=== PATIENT | female | born 1940 | race Caucasian/White ===

== ENCOUNTER → 2018-01-17 | Outpatient (CLI) | payer MEDICARE ==
[~2018-01-17] MED LIST: ASPI81EC PO; AZIT500 PO; Acidophilus La100 GM; CALCIT950; FISH1000; FLUSAL2505 IH; GUAI600T33 PO; Hair, Skin & N1 EACH PO; LEVSOD50 PO; LEVSOD75 PO; LORA1 PO; METPRE4DP PO; MOVE FREE JOIN1 EACH PO; OMEP40CA12 PO; OXYGEN; Omeprazole20 M1; PRED10 PO; SPIRIVA INHALER; TIOT18 IH; VITAMINS; Vitamin C100 MG; Zithromax250 MG PO
== END | disposition home or self-care (01) ==
LOC: LAB SHORT 07:53 → LAB EV 07:53
DX: R60.9 Edema, unspecified (principal)
CPT/HCPCS: 85379

== ENCOUNTER 2019-11-19 11:30 | Inpatient (IN) | payer MEDICARE, OTHER ==
[~2019-11-19] VITALS: Ht 149.9 cm; Wt 52.2 kg
[~2019-11-19 11:30] MED LIST changes: -ASPI81EC PO; +Aspirin EC81 MG PO; -FISH1000; +FLUT1DIS5 INH; +Fish Oil Conc1000 MG PO; -TIOT18 IH; +TIOT18 INH
[2019-11-19 12:20] LABS: BASOPHILS ABSOLUTE AUTO 0.04 K/mm3 (0.00-0.23); BASOPHILS PERCENT AUTO 0 % (0-2); EOSINOPHILS PERCENT AUTO 0 % (0-6); Hematocrit 38.6 % (33.0-51.0); Hemoglobin 12.3 g/dL (11.5-16.0); IMMATURE GRAN ABSOLUTE AUTO 0.04 K/mm3 (0.00-0.10); IMMATURE GRAN PERCENT AUTO 0 % (0-1); LYMPHOCYTES ABSOLUTE AUTO 2.42 K/mm3 (0.84-5.20); LYMPHOCYTES PERCENT AUTO 22 % (21-46); MONOCYTES ABSOLUTE AUTO 0.85 K/mm3 (0.16-1.47); MONOCYTES PERCENT AUTO 8 % (4-13); Mean Corpuscular HGB 28.5 pg (26.0-34.0); Mean Corpuscular HGB Conc 31.9 g/dL (31.5-36.5); Mean Corpuscular Volume 90 fL (80-100); NEUTROPHILS ABSOLUTE AUTO 7.75 K/mm3 (1.96-9.15); NEUTROPHILS PERCENT AUTO 70 % (41-73); RDW Coefficient Variation 14.4 % (11.7-14.2); RDW Standard Deviation 47.8 fL (35.1-46.3); Red Blood Cell Count 4.31 M/mm3 (3.80-5.20)
[2019-11-19 12:46] LABS: Anion Gap 8 mmol/L (6-16); Blood Urea Nitrogen 13 mg/dL (8-24); Bun/Creatinine Ratio 21.9 (12.0-20.0); CO2, Blood 24 mmol/L (21-32); Calcium, Blood 9.9 mg/dL (8.5-10.1); Chloride, Blood 102 mmol/L (98-108); Creatinine, Blood 0.59 mg/dL (0.40-1.00); Glomerular Filtration Rate >60 (60-); Glucose, Blood 119 mg/dL (70-99); Potassium, Blood 4.8 mmol/L (3.5-5.5); Sodium, Blood 134 mmol/L (136-145)
[2019-11-19 12:55] LABS: Mean Platelet Volume 10.7 fL (9.1-12.4); Platelet Count 372 K/mm3 (150-400)
[2019-11-19] MEDS ORDERED: SYNTHROID75 MCG PO (13:30)
[2019-11-19] MEDS ORDERED: VISBIOME 112.51 EACH PO (13:45)
[2019-11-19] MEDS ORDERED: GLUCOSA-CHOND-1 EACH PO (13:46)
[2019-11-19] MEDS ORDERED: CYAN500 PO (13:46)
[2019-11-19] MEDS ORDERED: ASCORBIC ACID500 M1 PO (13:47)
[2019-11-19] MEDS ORDERED: CALCIUM 500 +1 EAC2 PO (13:47)
--- NOTE | 2019-11-19 14:44 | NUR ---
SIEGEL CATHETER INSTERTED, URINE SPECIMIN COLLECTED ON INSERTION PER PROTOCOL.
--- NOTE | 2019-11-19 14:49 | NUR ---
PT ARRIVED TO UNIT AT APROX 1415 FROM ER. L HIP EXTERNALLY ROTATED AND SHORTENED, C/O 8/10 PAIN, MEDICATED FOR PAIN PER EMAR.
[2019-11-19 15:13] LABS: Source, Urine Catheter
[2019-11-19 15:21] LABS: Bilirubin, Urine Neg (Neg); Blood, Urine 1+ (Neg); Glucose Qualitative, Urine Neg (Neg); Ketones, Urine 3+ (Neg); Leukocyte Esterase, Urine Neg (Neg); Nitrite, Urine Neg (Neg); Protein, Urine Neg (Neg); Specific Gravity, Urine 1.015 (1.003-1.022); Urobilinogen, Urine NORM (Normal)
[2019-11-19 15:31] LABS: Appearance, Urine Clear (Clear); Color, Urine Yellow (P-Yellow)
[2019-11-19 15:34] LABS: White Blood Cells, Urine 0-2 /hpf (0-5)
[2019-11-19 15:35] LABS: Amorphous Light (0-Heavy); Bacteria Few /hpf; Squamous Epithelial Cells Rare /hpf (Few)
--- NOTE | 2019-11-19 17:32 | NUR ---
SHIFT SUMMARY L HIP REPAIR PLANNED 11/20/19. NO VISIBLE DEFORMITIES/BRUISING ON L HIP. PT REPORTS PAIN 7/8 ON 1-10 SCALE, MEDICATING PER EMAR. DENIES N/V, TOELRATING ORAL FLUIDS.
--- NOTE | 2019-11-20 04:57 | NUR ---
SHIFT SUMMARY: PT HAS BEEN NPO SINCE MIDNIGHT FOR PLANNED SURGERY WITH DR. REHMAN THIS MORNING. LLE EXTERNALY ROTATED. SIEGEL CATHETER PATENT AND DRAINING WITH TOTAL OF 800CC URINE EMPTIED THIS SHIFT. PAIN BEING MANAGED WITH 0.25MG OF IV DILAUDID PER EMAR.
[2019-11-20 05:03] LABS: BASOPHILS ABSOLUTE AUTO 0.03 K/mm3 (0.00-0.23); BASOPHILS PERCENT AUTO 0 % (0-2); EOSINOPHILS PERCENT AUTO 0 % (0-6); Hematocrit 40.5 % (33.0-51.0); Hemoglobin 12.9 g/dL (11.5-16.0); IMMATURE GRAN ABSOLUTE AUTO 0.04 K/mm3 (0.00-0.10); IMMATURE GRAN PERCENT AUTO 0 % (0-1); LYMPHOCYTES ABSOLUTE AUTO 1.83 K/mm3 (0.84-5.20); LYMPHOCYTES PERCENT AUTO 16 % (21-46); MONOCYTES ABSOLUTE AUTO 1.15 K/mm3 (0.16-1.47); MONOCYTES PERCENT AUTO 10 % (4-13); Mean Corpuscular HGB 28.3 pg (26.0-34.0); Mean Corpuscular HGB Conc 31.9 g/dL (31.5-36.5); Mean Corpuscular Volume 89 fL (80-100); Mean Platelet Volume 9.9 fL (9.1-12.4); NEUTROPHILS ABSOLUTE AUTO 8.37 K/mm3 (1.96-9.15); NEUTROPHILS PERCENT AUTO 73 % (41-73); Platelet Count 426 K/mm3 (150-400); RDW Coefficient Variation 14.3 % (11.7-14.2); RDW Standard Deviation 46.2 fL (35.1-46.3); Red Blood Cell Count 4.56 M/mm3 (3.80-5.20); White Blood Cell Count 11.42 K/mm3 (4.00-11.30)
[2019-11-20 05:34] LABS: Anion Gap 11 mmol/L (6-16); Blood Urea Nitrogen 11 mg/dL (8-24); Bun/Creatinine Ratio 17.4 (12.0-20.0); CO2, Blood 22 mmol/L (21-32); Calcium, Blood 9.9 mg/dL (8.5-10.1); Chloride, Blood 101 mmol/L (98-108); Creatinine, Blood 0.63 mg/dL (0.40-1.00); Glomerular Filtration Rate >60 (60-); Glucose, Blood 97 mg/dL (70-99); Potassium, Blood 3.7 mmol/L (3.5-5.5); Sodium, Blood 134 mmol/L (136-145)
--- NOTE | 2019-11-20 07:45 | NUR ---
pt reports pain 01/09 sched for or today with dr daniel pt is npo stated her mouth is dry chapstick put on and swabs given pt also given iv dilaudid for pain her sister claudio called earlier update given pt did not have her number so called her daughter to call her to give her an update also
--- NOTE | 2019-11-20 10:22 | NUR ---
DR ARENAS BY TO SEE PT
--- NOTE | 2019-11-20 11:15 | NUR ---
Patient is lying in bed and alert. Patient tells me about her daughter visiting on Monday and her fall and hospitalization on Monday. Patient is extremely disappointed by the chain of events yet thankful that her daughter is here to help handle things over the next few days. I listen empathically, normalize patient's experience and provide prayer. Anetatent responds well and shows signs of reduced stress and an elevated mood. I will continue to remain available to patient and family.
--- NOTE | 2019-11-20 12:15 | NUR ---
DR REHMAN BY TO SEE PT
--- NOTE | 2019-11-20 15:19 | NUR ---
Surgical site prepped with 2% Chlorhexidine cloth wipe. History, Chart, Medications and Allergies reviewed before start of procedure. Lungs clear T/O to Auscultation. Pre-Op teaching done. Pt verbalizes understanding.
--- NOTE | 2019-11-20 16:00 | NUR ---
pt transported via bed to or
--- NOTE | 2019-11-20 18:00 | NUR ---
pt arrived back to room 208 from pacu s/p l hip pinning pt has aquacel dressing c/d/i x2 pt asked if she is allowed to move her leg stated she can move put pt hob up and elev legs up pt can wiggle toes ppp offered cl no nausea
--- NOTE | 2019-11-21 02:12 | NUR ---
PT VERB PAIN LEVEL "BEST IT HAS BEEN SINCE ADMIT"SLEEPING OFF AND ON. REPOSITIONED.REFUSES UP TONIGHT.SIEGEL DRAINING CLEAR YELLOW.PT WAS AFTERNOON RETURN POSTOP. PT REVIOUSLY TACHYCARDIC. NOT TONIGHT. AFEBRILE.
[2019-11-21 03:53] LABS: BASOPHILS ABSOLUTE AUTO 0.01 K/mm3 (0.00-0.23); BASOPHILS PERCENT AUTO 0 % (0-2); EOSINOPHILS PERCENT AUTO 0 % (0-6); Hematocrit 34.2 % (33.0-51.0); Hemoglobin 10.9 g/dL (11.5-16.0); IMMATURE GRAN ABSOLUTE AUTO 0.04 K/mm3 (0.00-0.10); IMMATURE GRAN PERCENT AUTO 0 % (0-1); LYMPHOCYTES ABSOLUTE AUTO 0.92 K/mm3 (0.84-5.20); LYMPHOCYTES PERCENT AUTO 9 % (21-46); MONOCYTES ABSOLUTE AUTO 1.63 K/mm3 (0.16-1.47); MONOCYTES PERCENT AUTO 15 % (4-13); Mean Corpuscular HGB 28.8 pg (26.0-34.0); Mean Corpuscular HGB Conc 31.9 g/dL (31.5-36.5); Mean Corpuscular Volume 91 fL (80-100); Mean Platelet Volume 9.2 fL (9.1-12.4); NEUTROPHILS ABSOLUTE AUTO 8.19 K/mm3 (1.96-9.15); NEUTROPHILS PERCENT AUTO 76 % (41-73); Platelet Count 342 K/mm3 (150-400); RDW Coefficient Variation 14.4 % (11.7-14.2); RDW Standard Deviation 47.9 fL (35.1-46.3); Red Blood Cell Count 3.78 M/mm3 (3.80-5.20); White Blood Cell Count 10.79 K/mm3 (4.00-11.30)
--- NOTE | 2019-11-21 17:26 | NUR ---
SUMMARY REPORTS HAVING ADEQUATE PAIN CONTROL W/ PO NORCO, TAKING PO WELL, OOB TO CHAIR W/ PT/OT TODAY, TOLERATED WELL, DSG C/D/I, PLAN FOR SNF DC TOMORROW, NO ACUTE CHANGES THIS SHIFT.
--- NOTE | 2019-11-22 04:38 | NUR ---
SHIFT SUMMARY POD 2 L HIP REPAIR. AA0X4, VSS. PT HAS BEEN MEDICATED FOR PAIN PER EMAR. REPOSITIONS SELF IN BED, AND HAS BEEN CALLING APPROPRIATLY. SIEGEL PATENT AND DRAINING, PLAN TO REMOVE BEFORE END OF SHIFT. WILL MONITOR FOR URGE TO VOID. PLAN IS TO DISCHARGE TO SNF TODAY.
--- NOTE | 2019-11-22 14:26 | NUR ---
PT DC'D TO [facility], REPORT GIVEN TO ISIDRA HOUGH.
== END 2019-11-22 13:16 | DRG 481 ==
LOC: ER 11:30 → SURS 13:07
PROVIDERS: Emergency Medicine; Orthopaedic Surgery; ADMIT Family Medicine
PROC: 0QS734Z Reposition Left Upper Femur with Internal Fixation Device, Percutaneous Approach (ICD-10-PCS; principal; 2019-11-20 15:30)
DX: S72.142A Displaced intertrochanteric fracture of left femur, initial encounter for closed fracture (principal); E87.1 Hypo-osmolality and hyponatremia; Z79.82 Long term (current) use of aspirin; W18.30XA Fall on same level, unspecified, initial encounter; Y93.9 Activity, unspecified; Y92.9 Unspecified place or not applicable; I73.00 Raynaud's syndrome without gangrene; J44.9 Chronic obstructive pulmonary disease, unspecified; M19.90 Unspecified osteoarthritis, unspecified site; E03.9 Hypothyroidism, unspecified; M81.0 Age-related osteoporosis without current pathological fracture; Z87.891 Personal history of nicotine dependence; Z99.81 Dependence on supplemental oxygen; I10 Essential (primary) hypertension; M06.9 Rheumatoid arthritis, unspecified
CPT/HCPCS: 36415; 71045; 73502; 80048; 81001; 85025; 93005; 93010; 94760; 96374; 96376; 97110; 97162; 97166; 97530; 97535; 99285-25; A9270-GY; C1713; C1769; J0690; J1100; J1170; J2250; J2405; J2704; J3010; J7030; J7120

== ENCOUNTER 2020-07-20 08:28 | Emergency (ER) | payer MEDICARE, OTHER ==
[~2020-07-20] VITALS: Ht 149.9 cm; Wt 50.8 kg
[~2020-07-20 08:28] MED LIST changes: +ASCORBIC ACID500 M1 PO; +CALCIUM 500 +1 EAC2 PO; +CYAN500 PO; +GLUCOSA-CHOND-1 EACH PO; +SYNTHROID75 MCG PO; +VISBIOME 112.51 EACH PO
[2020-07-20] MEDS ORDERED: ACET500 PO (09:01)
[2020-07-20] MEDS ORDERED: TURMERIC500 M2 PO (09:02)
[2020-07-20] MEDS ORDERED: ALBU3IS (09:03)
[2020-07-20 09:47] LABS: BASOPHILS ABSOLUTE AUTO 0.02 K/mm3 (0.00-0.23); BASOPHILS PERCENT AUTO 0 % (0-2); EOSINOPHILS PERCENT AUTO 0 % (0-6); Hematocrit 43.4 % (33.0-51.0); Hemoglobin 13.9 g/dL (11.5-16.0); IMMATURE GRAN ABSOLUTE AUTO 0.02 K/mm3 (0.00-0.10); IMMATURE GRAN PERCENT AUTO 0 % (0-1); LYMPHOCYTES ABSOLUTE AUTO 1.47 K/mm3 (0.84-5.20); LYMPHOCYTES PERCENT AUTO 23 % (21-46); MONOCYTES ABSOLUTE AUTO 0.68 K/mm3 (0.16-1.47); MONOCYTES PERCENT AUTO 11 % (4-13); Mean Corpuscular HGB 28.4 pg (26.0-34.0); Mean Corpuscular Volume 89 fL (80-100); Mean Platelet Volume 10.5 fL (9.1-12.4); NEUTROPHILS ABSOLUTE AUTO 4.21 K/mm3 (1.96-9.15); NEUTROPHILS PERCENT AUTO 66 % (41-73); Platelet Count 300 K/mm3 (150-400); RDW Standard Deviation 48.9 fL (35.1-46.3)
[2020-07-20 09:57] LABS: Alanine Aminotransfer (ALT/SGP 23 U/L (12-78); Albumin, Blood 3.2 g/dL (3.4-5.0); Albumin/Globulin Ratio 0.7 (0.8-1.8); Alk Phos 96 U/L (50-136); Anion Gap 8 mmol/L (6-16); Aspartate Aminotrans (AST/SGOT 30 U/L (12-37); Bilirubin, Total 0.2 mg/dL (0.1-1.0); Blood Urea Nitrogen 11 mg/dL (8-24); Bun/Creatinine Ratio 16.7 (12.0-20.0); CO2, Blood 26 mmol/L (21-32); Calcium, Blood 9.6 mg/dL (8.5-10.1); Chloride, Blood 104 mmol/L (98-108); Creatinine, Blood 0.66 mg/dL (0.40-1.00); Globulin, Blood 4.5 g/dL (2.2-4.0); Glomerular Filtration Rate >60 (60-); Glucose, Blood 101 mg/dL (70-99); Potassium, Blood 3.4 mmol/L (3.5-5.5); Sodium, Blood 138 mmol/L (136-145); Total Protein, Blood 7.7 g/dL (6.4-8.2); Troponin I 0.017 ng/mL (0.000-0.040)
[2020-07-20] MEDS ORDERED: PRED20 PO (11:13)
[2020-07-20] MEDS ORDERED: ALBU3IS INH (11:13)
== END 2020-07-20 13:20 | disposition home or self-care (01) ==
LOC: ER 08:28
PROVIDERS: Physician Assistant
DX: U07.1 COVID-19 (principal); R50.9 Fever, unspecified; R09.81 Nasal congestion; J44.9 Chronic obstructive pulmonary disease, unspecified; E03.9 Hypothyroidism, unspecified; K21.9 Gastro-esophageal reflux disease without esophagitis; Z88.6 Allergy status to analgesic agent; Z88.8 Allergy status to other drugs, medicaments and biological substances; Z79.899 Other long term (current) drug therapy; Z87.891 Personal history of nicotine dependence
CPT/HCPCS: 36415; 71045; 80053; 84484; 85025; 93005; 93010; 99284-25

== ENCOUNTER 2020-08-07 12:19 | Emergency (ER) | payer MEDICARE, SELFPAY ==
[~2020-08-07] VITALS: Ht 149.9 cm; Wt 49.0 kg
[~2020-08-07 12:19] MED LIST changes: +ACET500 PO; +ALBU3IS; +ALBU3IS INH; +PRED20 PO; +TURMERIC500 M2 PO
[2020-08-07] MEDS ORDERED: ANORO ELLIPTA1 EAC1 INH (12:39)
[2020-08-07 13:34] LABS: BASOPHILS ABSOLUTE AUTO 0.05 K/mm3 (0.00-0.23); BASOPHILS PERCENT AUTO 0 % (0-2); EOSINOPHILS ABSOLUTE AUTO 0.01 K/mm3 (0.00-0.68); EOSINOPHILS PERCENT AUTO 0 % (0-6); Hematocrit 45.7 % (33.0-51.0); Hemoglobin 14.3 g/dL (11.5-16.0); IMMATURE GRAN ABSOLUTE AUTO 0.03 K/mm3 (0.00-0.10); IMMATURE GRAN PERCENT AUTO 0 % (0-1); LYMPHOCYTES ABSOLUTE AUTO 1.98 K/mm3 (0.84-5.20); LYMPHOCYTES PERCENT AUTO 17 % (21-46); MONOCYTES ABSOLUTE AUTO 0.82 K/mm3 (0.16-1.47); MONOCYTES PERCENT AUTO 7 % (4-13); Mean Corpuscular HGB 28.4 pg (26.0-34.0); Mean Corpuscular HGB Conc 31.3 g/dL (31.5-36.5); Mean Corpuscular Volume 91 fL (80-100); Mean Platelet Volume 11.1 fL (9.1-12.4); NEUTROPHILS ABSOLUTE AUTO 8.49 K/mm3 (1.96-9.15); NEUTROPHILS PERCENT AUTO 75 % (41-73); Platelet Count 323 K/mm3 (150-400); RDW Coefficient Variation 16.1 % (11.7-14.2); RDW Standard Deviation 52.1 fL (35.1-46.3); Red Blood Cell Count 5.03 M/mm3 (3.80-5.20); White Blood Cell Count 11.38 K/mm3 (4.00-11.30)
[2020-08-07 13:49] LABS: Alanine Aminotransfer (ALT/SGP 21 U/L (12-78); Albumin, Blood 3.8 g/dL (3.4-5.0); Alk Phos 88 U/L (50-136); Anion Gap 9 mmol/L (6-16); Aspartate Aminotrans (AST/SGOT 21 U/L (12-37); Bilirubin, Total 0.5 mg/dL (0.1-1.0); Blood Urea Nitrogen 8 mg/dL (8-24); Bun/Creatinine Ratio 13.3 (12.0-20.0); CO2, Blood 25 mmol/L (21-32); Calcium, Blood 10.4 mg/dL (8.5-10.1); Chloride, Blood 107 mmol/L (98-108); Glomerular Filtration Rate >60 (60-); Glucose, Blood 99 mg/dL (70-99); Potassium, Blood 3.6 mmol/L (3.5-5.5); Sodium, Blood 141 mmol/L (136-145); Total Protein, Blood 7.8 g/dL (6.4-8.2)
[2020-08-07] MEDS ORDERED: Zithromax250 MG PO (15:05)
[2020-08-07] MEDS ORDERED: CEFD300 PO (15:05)
== END 2020-08-07 15:48 | disposition home or self-care (01) ==
LOC: ER 12:19
PROVIDERS: Physician Assistant
DX: J44.0 Chronic obstructive pulmonary disease with (acute) lower respiratory infection (principal); J18.9 Pneumonia, unspecified organism; Z88.0 Allergy status to penicillin; Z88.8 Allergy status to other drugs, medicaments and biological substances; Z88.6 Allergy status to analgesic agent; Z79.899 Other long term (current) drug therapy
CPT/HCPCS: 36415; 71045; 80053; 84484; 85025; 93005; 93010; 99285-25

== ENCOUNTER 2020-09-17 21:19 | Emergency (ER) | payer MEDICARE, SELFPAY ==
[~2020-09-17] VITALS: Ht 149.9 cm; Wt 49.9 kg
[~2020-09-17 21:19] MED LIST changes: +ANORO ELLIPTA1 EAC1 INH; +CEFD300 PO
[2020-09-17 22:40] LABS: BASOPHILS ABSOLUTE AUTO 0.05 K/mm3 (0.00-0.23); BASOPHILS PERCENT AUTO 1 % (0-2); EOSINOPHILS PERCENT AUTO 0 % (0-6); Hematocrit 38.1 % (33.0-51.0); Hemoglobin 12.3 g/dL (11.5-16.0); IMMATURE GRAN ABSOLUTE AUTO 0.02 K/mm3 (0.00-0.10); IMMATURE GRAN PERCENT AUTO 0 % (0-1); LYMPHOCYTES PERCENT AUTO 33 % (21-46); MONOCYTES ABSOLUTE AUTO 0.88 K/mm3 (0.16-1.47); MONOCYTES PERCENT AUTO 12 % (4-13); Mean Corpuscular HGB 29.6 pg (26.0-34.0); Mean Corpuscular HGB Conc 32.3 g/dL (31.5-36.5); Mean Corpuscular Volume 92 fL (80-100); Mean Platelet Volume 10.9 fL (9.1-12.4); NEUTROPHILS ABSOLUTE AUTO 3.98 K/mm3 (1.96-9.15); NEUTROPHILS PERCENT AUTO 54 % (41-73); Platelet Count 362 K/mm3 (150-400); RDW Coefficient Variation 16.5 % (11.7-14.2); RDW Standard Deviation 55.6 fL (35.1-46.3); Red Blood Cell Count 4.16 M/mm3 (3.80-5.20); White Blood Cell Count 7.33 K/mm3 (4.00-11.30)
[2020-09-17 23:00] LABS: Alanine Aminotransfer (ALT/SGP 28 U/L (12-78); Albumin, Blood 3.5 g/dL (3.4-5.0); Albumin/Globulin Ratio 0.9 (0.8-1.8); Alk Phos 125 U/L (50-136); Anion Gap 4 mmol/L (6-16); Aspartate Aminotrans (AST/SGOT 26 U/L (12-37); Bilirubin, Total 0.2 mg/dL (0.1-1.0); Blood Urea Nitrogen 14 mg/dL (8-24); Bun/Creatinine Ratio 22.8 (12.0-20.0); CO2, Blood 29 mmol/L (21-32); Calcium, Blood 10.4 mg/dL (8.5-10.1); Chloride, Blood 108 mmol/L (98-108); Creatinine, Blood 0.61 mg/dL (0.40-1.00); Globulin, Blood 3.7 g/dL (2.2-4.0); Glomerular Filtration Rate >60 (60-); Glucose, Blood 91 mg/dL (70-99); Potassium, Blood 3.7 mmol/L (3.5-5.5); Sodium, Blood 141 mmol/L (136-145); Total Protein, Blood 7.2 g/dL (6.4-8.2); Troponin I <0.015 ng/mL (0.000-0.040)
[2020-09-18 00:32] LABS: Source, Urine Clean Catch
[2020-09-18 00:36] LABS: Bilirubin, Urine Neg (Neg); Blood, Urine 1+ (Neg); Glucose Qualitative, Urine Neg (Neg); Ketones, Urine Neg (Neg); Leukocyte Esterase, Urine Neg (Neg); Nitrite, Urine Neg (Neg); Protein, Urine Neg (Neg); Urobilinogen, Urine NORM (Normal)
[2020-09-18 00:37] LABS: Appearance, Urine Clear (Clear); Color, Urine Pale Yellow (P-Yellow)
[2020-09-18 00:56] LABS: Bacteria Not Seen /hpf; Red Blood Cells, Urine 0-2 /hpf (0-2); Squamous Epithelial Cells Not Seen /hpf (Few); White Blood Cells, Urine Not Seen /hpf (0-5)
== END 2020-09-18 02:17 | disposition home or self-care (01) ==
LOC: ER 21:19
PROVIDERS: Emergency Medicine
DX: R00.2 Palpitations (principal); J44.9 Chronic obstructive pulmonary disease, unspecified; Z87.891 Personal history of nicotine dependence; Z88.0 Allergy status to penicillin; Z88.8 Allergy status to other drugs, medicaments and biological substances; Z88.6 Allergy status to analgesic agent; Z79.52 Long term (current) use of systemic steroids
CPT/HCPCS: 80053; 81001; 84484; 85025; 93005; 93010; 99285-25; J7030

== ENCOUNTER → 2021-06-17 | Outpatient (CLI) | payer MEDICARE ==
[2021-06-17 19:28] LABS: BASOPHILS ABSOLUTE AUTO 0.04 K/mm3 (0.00-0.23); BASOPHILS PERCENT AUTO 1 % (0-2); EOSINOPHILS ABSOLUTE AUTO 0.16 K/mm3 (0.00-0.68); EOSINOPHILS PERCENT AUTO 2 % (0-6); Hematocrit 36.9 % (33.0-51.0); Hemoglobin 11.7 g/dL (11.5-16.0); IMMATURE GRAN ABSOLUTE AUTO 0.02 K/mm3 (0.00-0.10); IMMATURE GRAN PERCENT AUTO 0 % (0-1); LYMPHOCYTES PERCENT AUTO 28 % (21-46); MONOCYTES ABSOLUTE AUTO 0.61 K/mm3 (0.16-1.47); MONOCYTES PERCENT AUTO 9 % (4-13); Mean Corpuscular HGB 28.1 pg (26.0-34.0); Mean Corpuscular HGB Conc 31.7 g/dL (31.5-36.5); Mean Corpuscular Volume 89 fL (80-100); Mean Platelet Volume 10.6 fL (9.1-12.4); NEUTROPHILS ABSOLUTE AUTO 3.96 K/mm3 (1.96-9.15); NEUTROPHILS PERCENT AUTO 59 % (41-73); Platelet Count 391 K/mm3 (150-400); RDW Standard Deviation 59.5 fL (35.1-46.3); Red Blood Cell Count 4.17 M/mm3 (3.80-5.20); White Blood Cell Count 6.69 K/mm3 (4.00-11.30)
[2021-06-21 08:10] LABS: QUANTIFERON MITOGEN VALUE >10.00 IU/mL (.); QUANTIFERON NIL VALUE 0.07 IU/mL (.); QUANTIFERON TB1 AG VALUE 0.03 IU/mL (.); QUANTIFERON TB2 AG VALUE 0.03 IU/mL (.); QUANTIFERON-TB GOLD PLUS Negative (Negative)
== END | disposition home or self-care (01) ==
LOC: LAB SHORT 16:35
PROVIDERS: Internal Medicine Rheumatology
DX: M06.9 Rheumatoid arthritis, unspecified (principal)
CPT/HCPCS: 84450; 85025; 85651

== ENCOUNTER → 2021-07-28 | Outpatient (CLI) | payer MEDICARE ==
[2021-07-28 16:48] LABS: BASOPHILS ABSOLUTE AUTO 0.04 K/mm3 (0.00-0.23); BASOPHILS PERCENT AUTO 0 % (0-2); EOSINOPHILS ABSOLUTE AUTO 0.11 K/mm3 (0.00-0.68); EOSINOPHILS PERCENT AUTO 1 % (0-6); Hematocrit 43.2 % (33.0-51.0); Hemoglobin 13.6 g/dL (11.5-16.0); IMMATURE GRAN ABSOLUTE AUTO 0.02 K/mm3 (0.00-0.10); IMMATURE GRAN PERCENT AUTO 0 % (0-1); LYMPHOCYTES ABSOLUTE AUTO 2.28 K/mm3 (0.84-5.20); LYMPHOCYTES PERCENT AUTO 23 % (21-46); MONOCYTES ABSOLUTE AUTO 0.58 K/mm3 (0.16-1.47); MONOCYTES PERCENT AUTO 6 % (4-13); Mean Corpuscular HGB 29.5 pg (26.0-34.0); Mean Corpuscular HGB Conc 31.5 g/dL (31.5-36.5); Mean Corpuscular Volume 94 fL (80-100); Mean Platelet Volume 11.1 fL (9.1-12.4); NEUTROPHILS ABSOLUTE AUTO 6.78 K/mm3 (1.96-9.15); NEUTROPHILS PERCENT AUTO 69 % (41-73); Platelet Count 368 K/mm3 (150-400); RDW Coefficient Variation 20.8 % (11.7-14.2); Red Blood Cell Count 4.61 M/mm3 (3.80-5.20); White Blood Cell Count 9.81 K/mm3 (4.00-11.30)
== END | disposition home or self-care (01) ==
LOC: LAB SHORT 15:54
PROVIDERS: Internal Medicine Rheumatology
DX: M06.9 Rheumatoid arthritis, unspecified (principal)
CPT/HCPCS: 36415; 84450; 85025; 85651

== ENCOUNTER → 2021-10-27 | Outpatient (CLI) | payer OTHER ==
[2021-10-27 13:22] LABS: BASOPHILS ABSOLUTE AUTO 0.05 K/mm3 (0.00-0.23); BASOPHILS PERCENT AUTO 0 % (0-2); EOSINOPHILS ABSOLUTE AUTO 0.09 K/mm3 (0.00-0.68); EOSINOPHILS PERCENT AUTO 1 % (0-6); Hematocrit 39.8 % (33.0-51.0); Hemoglobin 12.8 g/dL (11.5-16.0); IMMATURE GRAN ABSOLUTE AUTO 0.06 K/mm3 (0.00-0.10); IMMATURE GRAN PERCENT AUTO 1 % (0-1); LYMPHOCYTES ABSOLUTE AUTO 1.72 K/mm3 (0.84-5.20); LYMPHOCYTES PERCENT AUTO 15 % (21-46); MONOCYTES ABSOLUTE AUTO 0.78 K/mm3 (0.16-1.47); MONOCYTES PERCENT AUTO 7 % (4-13); Mean Corpuscular HGB 31.1 pg (26.0-34.0); Mean Corpuscular HGB Conc 32.2 g/dL (31.5-36.5); Mean Corpuscular Volume 97 fL (80-100); Mean Platelet Volume 10.9 fL (9.1-12.4); NEUTROPHILS ABSOLUTE AUTO 8.69 K/mm3 (1.96-9.15); NEUTROPHILS PERCENT AUTO 76 % (41-73); Platelet Count 457 K/mm3 (150-400); RDW Coefficient Variation 15.4 % (11.7-14.2); RDW Standard Deviation 53.9 fL (35.1-46.3); Red Blood Cell Count 4.12 M/mm3 (3.80-5.20); White Blood Cell Count 11.39 K/mm3 (4.00-11.30)
== END | disposition home or self-care (01) ==
LOC: LAB SHORT 08:55
PROVIDERS: Internal Medicine Rheumatology
DX: M06.9 Rheumatoid arthritis, unspecified (principal)
CPT/HCPCS: 84450; 85025; 85651

== ENCOUNTER → 2022-01-26 | Outpatient (CLI) | payer OTHER | END | disposition home or self-care (01) | LOC: LAB SHORT 15:11 → PLD 15:11 | DX: L82.1 Other seborrheic keratosis (principal) | CPT/HCPCS: 88305 ==

== ENCOUNTER 2022-05-18 10:18 | Emergency (ER) | payer OTHER ==
[~2022-05-18] VITALS: Ht 147.3 cm; Wt 46.7 kg
[~2022-05-18 10:18] MED LIST changes: +ASPI81CH PO; +LIDO700A20 TOP; +METHOTREXATE2.5 M9 PO; +PRED5 PO; +SPIRIVA RESPIMAT4 G3 INH; +SYNTHROID88 MCG PO
== END 2022-05-18 13:31 | disposition home or self-care (01) ==
LOC: ER 10:18
DX: R07.89 Other chest pain (principal); J44.9 Chronic obstructive pulmonary disease, unspecified; E03.9 Hypothyroidism, unspecified; Z88.0 Allergy status to penicillin; Z88.6 Allergy status to analgesic agent; Z88.8 Allergy status to other drugs, medicaments and biological substances; Z79.899 Other long term (current) drug therapy; Z79.890 Hormone replacement therapy; Z87.891 Personal history of nicotine dependence; Z79.82 Long term (current) use of aspirin
CPT/HCPCS: 71046; 93005; 93010; A9270; J1885

== ENCOUNTER → 2022-06-30 | Outpatient (CLI) | payer OTHER ==
[2022-06-30 19:08] LABS: BASOPHILS ABSOLUTE AUTO 0.05 K/mm3 (0.00-0.23); BASOPHILS PERCENT AUTO 0 % (0-2); EOSINOPHILS ABSOLUTE AUTO 0.12 K/mm3 (0.00-0.68); EOSINOPHILS PERCENT AUTO 1 % (0-6); Hemoglobin 13.7 g/dL (11.5-16.0); IMMATURE GRAN ABSOLUTE AUTO 0.06 K/mm3 (0.00-0.10); IMMATURE GRAN PERCENT AUTO 1 % (0-1); LYMPHOCYTES ABSOLUTE AUTO 1.64 K/mm3 (0.84-5.20); LYMPHOCYTES PERCENT AUTO 14 % (21-46); MONOCYTES ABSOLUTE AUTO 0.77 K/mm3 (0.16-1.47); MONOCYTES PERCENT AUTO 7 % (4-13); Mean Corpuscular HGB 31.5 pg (26.0-34.0); Mean Corpuscular HGB Conc 32.6 g/dL (31.5-36.5); Mean Corpuscular Volume 97 fL (80-100); Mean Platelet Volume 10.6 fL (9.1-12.4); NEUTROPHILS ABSOLUTE AUTO 8.83 K/mm3 (1.96-9.15); NEUTROPHILS PERCENT AUTO 77 % (41-73); Platelet Count 396 K/mm3 (150-400); RDW Coefficient Variation 14.6 % (11.7-14.2); RDW Standard Deviation 51.7 fL (35.1-46.3); Red Blood Cell Count 4.35 M/mm3 (3.80-5.20); White Blood Cell Count 11.47 K/mm3 (4.00-11.30)
== END | disposition home or self-care (01) ==
LOC: LAB 15:51 → LAB SHORT 15:51
PROVIDERS: Internal Medicine Rheumatology
DX: M06.9 Rheumatoid arthritis, unspecified (principal)
CPT/HCPCS: 84450; 85025; 85651

== ENCOUNTER → 2023-03-09 | Outpatient (CLI) | payer OTHER ==
[2023-03-09 16:50] LABS: BASOPHILS ABSOLUTE AUTO 0.06 K/mm3 (0.00-0.23); BASOPHILS PERCENT AUTO 1 % (0-2); EOSINOPHILS ABSOLUTE AUTO 0.25 K/mm3 (0.00-0.68); EOSINOPHILS PERCENT AUTO 3 % (0-6); Hematocrit 35.5 % (33.0-51.0); Hemoglobin 11.6 g/dL (11.5-16.0); IMMATURE GRAN ABSOLUTE AUTO 0.07 K/mm3 (0.00-0.10); IMMATURE GRAN PERCENT AUTO 1 % (0-1); LYMPHOCYTES ABSOLUTE AUTO 1.35 K/mm3 (0.84-5.20); LYMPHOCYTES PERCENT AUTO 16 % (21-46); MONOCYTES ABSOLUTE AUTO 0.21 K/mm3 (0.16-1.47); MONOCYTES PERCENT AUTO 3 % (4-13); Mean Corpuscular HGB 32.9 pg (26.0-34.0); Mean Corpuscular HGB Conc 32.7 g/dL (31.5-36.5); Mean Corpuscular Volume 101 fL (80-100); Mean Platelet Volume 10.9 fL (9.1-12.4); NEUTROPHILS ABSOLUTE AUTO 6.61 K/mm3 (1.96-9.15); NEUTROPHILS PERCENT AUTO 77 % (41-73); Platelet Count 431 K/mm3 (150-400); RDW Coefficient Variation 17.2 % (11.7-14.2); RDW Standard Deviation 60.2 fL (35.1-46.3); Red Blood Cell Count 3.53 M/mm3 (3.80-5.20); White Blood Cell Count 8.55 K/mm3 (4.00-11.30)
[2023-03-09 17:43] LABS: Albumin, Blood 3.8 g/dL (3.4-5.0); Albumin/Globulin Ratio 1.1 (0.8-1.8); Bilirubin, Total 0.4 mg/dL (0.1-1.0); Bun/Creatinine Ratio 29.2 (12.0-20.0); Calcium, Blood 11.3 mg/dL (8.5-10.1); Creatinine, Blood 0.75 mg/dL (0.40-1.00); Globulin, Blood 3.4 g/dL (2.2-4.0); Potassium, Blood 4.6 mmol/L (3.5-5.5); Total Protein, Blood 7.2 g/dL (6.4-8.2)
== END | disposition home or self-care (01) ==
LOC: LAB 08:50 → LAB SHORT 08:50
PROVIDERS: Internal Medicine Rheumatology
DX: M06.9 Rheumatoid arthritis, unspecified (principal)
CPT/HCPCS: 80053; 85025; 85651

== ENCOUNTER 2023-03-19 09:24 | Emergency (ER) | payer OTHER ==
[~2023-03-19] VITALS: Ht 147.3 cm; Wt 54.4 kg
[2023-03-19 10:17] LABS: BASOPHILS ABSOLUTE AUTO 0.05 K/mm3 (0.00-0.23); BASOPHILS PERCENT AUTO 1 % (0-2); EOSINOPHILS ABSOLUTE AUTO 0.17 K/mm3 (0.00-0.68); EOSINOPHILS PERCENT AUTO 2 % (0-6); Hematocrit 34.5 % (33.0-51.0); Hemoglobin 11.1 g/dL (11.5-16.0); IMMATURE GRAN ABSOLUTE AUTO 0.06 K/mm3 (0.00-0.10); IMMATURE GRAN PERCENT AUTO 1 % (0-1); LYMPHOCYTES PERCENT AUTO 17 % (21-46); MONOCYTES ABSOLUTE AUTO 0.82 K/mm3 (0.16-1.47); MONOCYTES PERCENT AUTO 9 % (4-13); Mean Corpuscular HGB 32.2 pg (26.0-34.0); Mean Corpuscular HGB Conc 32.2 g/dL (31.5-36.5); Mean Corpuscular Volume 100 fL (80-100); Mean Platelet Volume 10.2 fL (9.1-12.4); NEUTROPHILS ABSOLUTE AUTO 6.64 K/mm3 (1.96-9.15); NEUTROPHILS PERCENT AUTO 71 % (41-73); Platelet Count 342 K/mm3 (150-400); RDW Coefficient Variation 16.8 % (11.7-14.2); RDW Standard Deviation 58.9 fL (35.1-46.3); Red Blood Cell Count 3.45 M/mm3 (3.80-5.20); White Blood Cell Count 9.34 K/mm3 (4.00-11.30)
[2023-03-19 10:24] LABS: Albumin, Blood 3.5 g/dL (3.4-5.0); Bilirubin, Total 0.3 mg/dL (0.1-1.0); Bun/Creatinine Ratio 22.5 (12.0-20.0); Calcium, Blood 10.7 mg/dL (8.5-10.1); Creatinine, Blood 0.85 mg/dL (0.40-1.00); Globulin, Blood 3.5 g/dL (2.2-4.0); Magnesium, Blood 2.1 mg/dL (1.6-2.4); Phosphorus, Blood 2.3 mg/dL (2.5-4.9); Potassium, Blood 3.8 mmol/L (3.5-5.5)
[2023-03-19 11:02] LABS: D-Dimer, Quantitative 1.46 mg/L FEU (0.00-0.52); International Normalized Ratio 0.96; Prothrombin Time Results 10.1 Sec (9.7-11.5)
[2023-03-19 12:05] LABS: Influenza A, PCR NEGATIVE (NEGATIVE); Influenza B, PCR NEGATIVE (NEGATIVE); Resp Syncytial Virus, PCR NEGATIVE (NEGATIVE); SARS-Cov-2 (COVID-19) PCR, MMC NEGATIVE (NEGATIVE)
[2023-03-19 14:08] LABS: Source, Urine Clean Catch
[2023-03-19 14:16] LABS: Appearance, Urine Clear (Clear); Bilirubin, Urine Neg (Neg); Blood, Urine 2+ (Neg); Color, Urine Yellow (P-Yellow); Glucose Qualitative, Urine Neg (Neg); Ketones, Urine 1+ (Neg); Leukocyte Esterase, Urine Neg (Neg); Nitrite, Urine Neg (Neg); Protein, Urine Neg (Neg); Specific Gravity, Urine 1.015 (1.003-1.022); Urobilinogen, Urine NORM (Normal)
[2023-03-19 14:26] LABS: Bacteria Few /hpf; Hyaline Casts 0-2 /lpf (0-2); Squamous Epithelial Cells Rare /hpf (Few); White Blood Cells, Urine 0-2 /hpf (0-5)
[2023-03-19 16:30] VITALS: BP 135/72
== END 2023-03-19 17:10 | disposition home or self-care (01) ==
LOC: ER 09:24
PROVIDERS: Emergency Medicine
DX: M48.56XA Collapsed vertebra, not elsewhere classified, lumbar region, initial encounter for fracture (principal); Z20.822 Contact with and (suspected) exposure to COVID-19; Z87.891 Personal history of nicotine dependence; J44.9 Chronic obstructive pulmonary disease, unspecified; Z79.82 Long term (current) use of aspirin; Z79.51 Long term (current) use of inhaled steroids; Z79.890 Hormone replacement therapy; Z79.899 Other long term (current) drug therapy; Z88.0 Allergy status to penicillin; Z88.8 Allergy status to other drugs, medicaments and biological substances
CPT/HCPCS: 0241U; 71046; 71260; 74176; 80053; 81001; 83735; 84100; 84145; 84484; 85025; 85379; 85610; 85730; 93005; 93010; 96374-59; 99285-25; J1885; Q9967

== ENCOUNTER → 2023-06-08 | Outpatient (CLI) | payer OTHER ==
[2023-06-08 14:45] LABS: BASOPHILS ABSOLUTE AUTO 0.07 K/mm3 (0.00-0.23); BASOPHILS PERCENT AUTO 1 % (0-2); EOSINOPHILS ABSOLUTE AUTO 0.36 K/mm3 (0.00-0.68); EOSINOPHILS PERCENT AUTO 3 % (0-6); Hematocrit 39.6 % (33.0-51.0); Hemoglobin 12.6 g/dL (11.5-16.0); IMMATURE GRAN ABSOLUTE AUTO 0.04 K/mm3 (0.00-0.10); IMMATURE GRAN PERCENT AUTO 0 % (0-1); LYMPHOCYTES ABSOLUTE AUTO 2.66 K/mm3 (0.84-5.20); LYMPHOCYTES PERCENT AUTO 22 % (21-46); MONOCYTES ABSOLUTE AUTO 0.52 K/mm3 (0.16-1.47); MONOCYTES PERCENT AUTO 4 % (4-13); Mean Corpuscular HGB 33.1 pg (26.0-34.0); Mean Corpuscular HGB Conc 31.8 g/dL (31.5-36.5); Mean Corpuscular Volume 104 fL (80-100); Mean Platelet Volume 10.5 fL (9.1-12.4); NEUTROPHILS ABSOLUTE AUTO 8.43 K/mm3 (1.96-9.15); NEUTROPHILS PERCENT AUTO 70 % (41-73); Platelet Count 405 K/mm3 (150-400); RDW Coefficient Variation 16.4 % (11.7-14.2); RDW Standard Deviation 61.1 fL (35.1-46.3); Red Blood Cell Count 3.81 M/mm3 (3.80-5.20); White Blood Cell Count 12.08 K/mm3 (4.00-11.30)
[2023-06-08 15:13] LABS: Albumin, Blood 3.8 g/dL (3.4-5.0); Albumin/Globulin Ratio 1.1 (0.8-1.8); Bilirubin, Total 0.3 mg/dL (0.1-1.0); Bun/Creatinine Ratio 21.6 (12.0-20.0); Calcium, Blood 11.1 mg/dL (8.5-10.1); Creatinine, Blood 0.79 mg/dL (0.40-1.00); Globulin, Blood 3.6 g/dL (2.2-4.0); Potassium, Blood 3.9 mmol/L (3.5-5.5); Total Protein, Blood 7.4 g/dL (6.4-8.2)
== END ==
LOC: LAB SHORT 13:41 → LAB 13:41
PROVIDERS: Internal Medicine Rheumatology
DX: M06.9 Rheumatoid arthritis, unspecified (principal)
CPT/HCPCS: 80053; 85025; 85651

== ENCOUNTER 2024-01-30 12:44 | Emergency (ER) | payer OTHER ==
[~2024-01-30] VITALS: Ht 144.8 cm; Wt 43.1 kg
[~2024-01-30 12:44] MED LIST changes: +Prinivil10 MG PO
[2024-01-30] MEDS ORDERED: TRAM50 PO (13:25)
[2024-01-30] MEDS ORDERED: ANORO ELLIPTA1 EAC1 (13:25)
[2024-01-30] MEDS ORDERED: EUTHYROX88 MC1 PO (13:26)
[2024-01-30] MEDS ORDERED: Acetaminophen 325 MG TABLET PO ONE (14:30)
[2024-01-30] MEDS ORDERED: TraMADol HCl 50 MG Tab PO ONE (14:30)
[2024-01-30 15:10] VITALS: BP 133/78
== END 2024-01-30 15:13 | disposition home or self-care (01) ==
LOC: ER 12:44
DX: M54.6 Pain in thoracic spine (principal); J44.9 Chronic obstructive pulmonary disease, unspecified; I10 Essential (primary) hypertension; E03.9 Hypothyroidism, unspecified; Z88.0 Allergy status to penicillin; Z88.6 Allergy status to analgesic agent; Z88.8 Allergy status to other drugs, medicaments and biological substances; Z79.52 Long term (current) use of systemic steroids; Z79.890 Hormone replacement therapy; Z87.891 Personal history of nicotine dependence
CPT/HCPCS: 71046; 72080; 99283-25; A9270

== ENCOUNTER 2024-08-29 10:58 | Day surgery (SDC) | payer OTHER ==
[~2024-08-29] VITALS: Ht 144.8 cm; Wt 45.0 kg
[~2024-08-29 10:58] MED LIST changes: +ANORO ELLIPTA1 EAC1; +Balanced Salt Epinephrine Irrigation Solution 500 mL IR SCH; +Diazepam 2 MG Tab PO PRN; +EUTHYROX88 MC1 PO; +Lidocaine HCl/Pf 1% 5 ML VIAL XX SCH; +Moxifloxacin HCL 0.5 MG/0.1 ML 0.4MLSYR LEFTEYE SCH; +Ondansetron 4 MG SoluTab MM PRN; +PHENYLEPHRINE\\TROPICAMIDE\\TETRACAINE OPHTHALMIC DILATING SOLN LEFTEYE PRN; +Povidone-Iodine 450 DROP/30 ML Solution LEFTEYE SCH; +Povidone-Iodine 450 DROP/30 ML Solution ONE; +TRAM50 PO; +Tetracaine HCl/Pf 0.5% Opth Soln 4 ml ONE; +Triamcinolone Inj Susp 40 MG / ML 1ML Vial INJ SCH; +Triamcinolone Inj Susp 40 MG / ML 1ML Vial ONE; +diazePAM 2 MG,diazePAM 5 MG PO SCH
[2024-08-29] MEDS ORDERED: Aspir 8181 MG (12:29)
[2024-08-29] MEDS ORDERED: Vitamin D1000 UNI1 PO (12:30)
[2024-08-29] MEDS ORDERED: Midazolam HCl 1MG / ML 2ML Vial ONE (13:04)
[2024-08-29 13:38] VITALS: BP 125/79
--- NOTE | 2024-08-29 14:14 | NUR ---
08/29/24 1414 Priya Medel D/C INSTRUCTIONS GIVEN TO PT & PT'S FRIEND, GABBY. UNDERSTANDING VERBALIZED. PT HAS ALL BELONGINGS, INCLUDING CANE, PURSE & DEBIT CARD. PT DENIES PAIN/NAUSEA, VSS, ON 2L/NC CONTINUALLY. PT TOLERATING WATER W/O COMPLAINT. PT WHEELED TO PRIVATE VEHICLE, STEADY GAIT NOTED UPON AMBULATION W/ CANE. NO VISIBLE SIGNS OF DISTRESS NOTED.
== END 2024-08-29 14:08 | disposition home or self-care (01) ==
LOC: ORSCSDS 10:58
PROVIDERS: Ophthalmology
PROC: 08RK3JZ Replacement of Left Lens with Synthetic Substitute, Percutaneous Approach (ICD-10-PCS; principal; 2024-08-29 12:30)
DX: H25.813 Combined forms of age-related cataract, bilateral (principal); H21.81 Floppy iris syndrome; K21.9 Gastro-esophageal reflux disease without esophagitis; J44.9 Chronic obstructive pulmonary disease, unspecified; Z99.81 Dependence on supplemental oxygen; Z79.899 Other long term (current) drug therapy
CPT/HCPCS: J2250; J3301; V2632

== ENCOUNTER 2024-09-05 09:06 | Day surgery (SDC) | payer OTHER ==
[~2024-09-05] VITALS: Ht 142.2 cm; Wt 45.4 kg
[~2024-09-05 09:06] MED LIST changes: +Aspir 8181 MG; -Balanced Salt Epinephrine Irrigation Solution 500 mL IR SCH; -Diazepam 2 MG Tab PO PRN; -Lidocaine HCl/Pf 1% 5 ML VIAL XX SCH; -Moxifloxacin HCL 0.5 MG/0.1 ML 0.4MLSYR LEFTEYE SCH; +NS 500 ML IV ONE; +NS 500 ML ONE; -Ondansetron 4 MG SoluTab MM PRN; -PHENYLEPHRINE\\TROPICAMIDE\\TETRACAINE OPHTHALMIC DILATING SOLN LEFTEYE PRN; -Povidone-Iodine 450 DROP/30 ML Solution LEFTEYE SCH; -Triamcinolone Inj Susp 40 MG / ML 1ML Vial INJ SCH; +Vitamin D1000 UNI1 PO; -diazePAM 2 MG,diazePAM 5 MG PO SCH
--- NOTE | 2024-09-05 09:34 | NUR ---
09/05/24 0934 Sonal Lozano 0920: PATIENT BROUGHT BACK TO PRE-OP 0933: FINISHED GETTING PATIENT WEIGHED, INTO BED WITH 2 PERSON ASSIST, AND POSITIONED APPROPRIATELY
[2024-09-05] MEDS ORDERED: VITAMIN D310 MC4 (09:44)
[2024-09-05] MEDS ORDERED: BREO ELLIPTA 11 EAC1 (09:45)
[2024-09-05] MEDS ORDERED: MOVE FREE (09:46)
[2024-09-05] MEDS ORDERED: FISH OIL 1,0001 EA10 (09:46)
[2024-09-05] MEDS ORDERED: [UNRECOGNIZED DRUG - OTHER] (09:47)
[2024-09-05] MEDS ORDERED: [UNRECOGNIZED DRUG - MIXTURE] (09:47)
[2024-09-05] MEDS ORDERED: ACIDOPHILUS1 EAC3 (09:47)
[2024-09-05] MEDS ORDERED: MULTIVITAMIN (09:47)
[2024-09-05] MEDS ORDERED: TRAM50 (09:48)
[2024-09-05] MEDS ORDERED: VITAMIN B12 (09:49)
[2024-09-05] MEDS ORDERED: NS 500 ML IV ONE (09:52)
[2024-09-05] MEDS ORDERED: FentaNYL Citrate 50 MCG/ML 2 ML Injection ONE (10:00)
[2024-09-05] MEDS ORDERED: Midazolam HCl 1MG / ML 2ML Vial ONE (10:00)
[2024-09-05] MEDS ORDERED: Moxifloxacin HCL 0.5 MG/0.1 ML 0.4MLSYR XX ONE (10:19)
[2024-09-05] MEDS ORDERED: Balanced Salt Epinephrine Irrigation Solution 500 mL RIGHTEYE ONE (10:19)
[2024-09-05] MEDS ORDERED: Lidocaine HCl 1% 5 ML SYR XX ONE (10:19)
[2024-09-05 11:14] VITALS: BP 129/64
--- NOTE | 2024-09-05 11:15 | NUR ---
09/05/24 1115 Priya Medel D/C INSTRUCTIONS GIVEN TO PT, UNDERSTANDING VERBALIZED. PT DENIES PAIN/NAUSEA, VSS, ON RA. PT BELONGINGS RETURNED TO HER, INCLUDING MEDICAL ALERT NECKLACE. PT TOLERATING ICE WATER W/O COMPLAINT. EYE KIT PROVIDED. PT LEAVING W/ ALL BELONGINGS. PT WHEELED TO PRIVATE VEHICLE, STEADY GAIT W/ ASSIST FROM WC TO VEHICLE. NO VISIBLE SIGNS OF DISTRESS NOTED.
[2024-09-06] MEDS ORDERED: Povidone-Iodine 450 DROP/30 ML Solution RIGHTEYE SCH (06:00)
[2024-09-06] MEDS ORDERED: Lidocaine HCl/Pf 1% 5 ML VIAL XX SCH (06:00)
[2024-09-06] MEDS ORDERED: Balanced Salt Epinephrine Irrigation Solution 500 mL IR SCH (06:00)
[2024-09-06] MEDS ORDERED: Moxifloxacin HCL 0.5 MG/0.1 ML 0.4MLSYR RIGHTEYE SCH (06:00)
[2024-09-06] MEDS ORDERED: Triamcinolone Inj Susp 40 MG / ML 1ML Vial INJ SCH (06:00)
[2024-09-06] MEDS ORDERED: PHENYLEPHRINE\\TROPICAMIDE\\TETRACAINE OPHTHALMIC DILATING SOLN RIGHTEYE PRN (06:00)
== END 2024-09-05 11:10 | disposition home or self-care (01) ==
LOC: ORSCSDS 09:06
PROVIDERS: Ophthalmology
PROC: 08RJ3JZ Replacement of Right Lens with Synthetic Substitute, Percutaneous Approach (ICD-10-PCS; principal; 2024-09-05 10:30)
DX: H25.813 Combined forms of age-related cataract, bilateral (principal); H21.81 Floppy iris syndrome; I10 Essential (primary) hypertension; J44.89 Other specified chronic obstructive pulmonary disease; Z99.81 Dependence on supplemental oxygen; Z87.891 Personal history of nicotine dependence; E03.9 Hypothyroidism, unspecified; Z79.899 Other long term (current) drug therapy
CPT/HCPCS: J2250; J3010; J3301; J7040; V2632

== ENCOUNTER 2025-02-13 09:13 | Inpatient (IN) | payer OTHER ==
[2025-02-13] VITALS (25 sets, daily range): BP systolic 90–153; BP diastolic 54–90
[~2025-02-13] VITALS: Ht 160 cm; Wt 51.0 kg
[~2025-02-13 09:13] MED LIST changes: +ACIDOPHILUS1 EAC3; +BREO ELLIPTA 11 EAC1; +BREZTRI AEROS10.7 GM INH; +FISH OIL 1,0001 EA10; +MOVE FREE; +MULTIVITAMIN; -NS 500 ML IV ONE; -NS 500 ML ONE; +PROAIR DIGIHAL90 MCG INH; -Povidone-Iodine 450 DROP/30 ML Solution ONE; +TRAM50; -Tetracaine HCl/Pf 0.5% Opth Soln 4 ml ONE; -Triamcinolone Inj Susp 40 MG / ML 1ML Vial ONE; +VITAMIN B12; +VITAMIN D310 MC4; +Ventolin5 MG/1 ML INH; +[UNRECOGNIZED DRUG - MIXTURE]; +[UNRECOGNIZED DRUG - OTHER]
[2025-02-13] MEDS ORDERED: Albuterol 2.5 MG/3 ML VIAL INH SCH (09:20)
[2025-02-13] MEDS ORDERED: DiphenhydrAMINE HCl 50 MG/ML 1ML Vial IV ONE (10:05)
[2025-02-13 10:08] LABS: pH Blood Venous 7.46 (7.34-7.37)
[2025-02-13] MEDS ORDERED: Ondansetron HCl 2 MG / ML 2ML Vial IV PRN (10:10)
[2025-02-13 10:29] LABS: BASOPHILS ABSOLUTE AUTO 0.05 K/mm3 (0.00-0.23); BASOPHILS PERCENT AUTO 0 % (0-2); EOSINOPHILS ABSOLUTE AUTO 0.09 K/mm3 (0.00-0.68); EOSINOPHILS PERCENT AUTO 1 % (0-6); Hematocrit 28.5 % (33.0-51.0); Hemoglobin 8.9 g/dL (11.5-16.0); IMMATURE GRAN ABSOLUTE AUTO 0.21 K/mm3 (0.00-0.10); IMMATURE GRAN PERCENT AUTO 2 % (0-1); LYMPHOCYTES ABSOLUTE AUTO 0.64 K/mm3 (0.84-5.20); LYMPHOCYTES PERCENT AUTO 5 % (21-46); MONOCYTES ABSOLUTE AUTO 1.68 K/mm3 (0.16-1.47); MONOCYTES PERCENT AUTO 12 % (4-13); Mean Corpuscular HGB Conc 31.2 g/dL (31.5-36.5); Mean Corpuscular Volume 99 fL (80-100); NEUTROPHILS ABSOLUTE AUTO 11.26 K/mm3 (1.96-9.15); NEUTROPHILS PERCENT AUTO 81 % (41-73); NRBC ABSOLUTE 0.00 K/mm3 (0.00-0.02); NRBC Auto 0.0 /100 WBC (0.0-0.2); Platelet Count 367 K/mm3 (150-400); RDW Coefficient Variation 13.3 % (11.7-14.2); RDW Standard Deviation 47.7 fL (35.1-46.3)
[2025-02-13 10:56] LABS: Alanine Aminotransfer (ALT/SGP 29.0 U/L (12-78); Albumin, Blood 2.5 g/dL (3.4-5.0); Albumin/Globulin Ratio 0.6 (0.8-1.8); Anion Gap 8.0 mmol/L (3-11); Aspartate Aminotrans (AST/SGOT 75.0 U/L (12-37); Bilirubin, Total 0.6 mg/dL (0.1-1.0); Blood Urea Nitrogen 19.0 mg/dL (8-24); CO2, Blood 29.0 mmol/L (21-32); Calcium, Blood 10.4 mg/dL (8.5-10.1); Chloride, Blood 99.0 mmol/L (98-108); Creatinine, Blood 0.66 mg/dL (0.40-1.00); Globulin, Blood 4.0 g/dL (2.2-4.0); Glucose, Blood 119.0 mg/dL (70-99); Potassium, Blood 4.6 mmol/L (3.5-5.5); Sodium, Blood 131.0 mmol/L (136-145); Total Protein, Blood 6.5 g/dL (6.4-8.2)
[2025-02-13 12:00] LABS: Prothrombin Time Results 10.5 Sec (9.7-11.5)
[2025-02-13] MEDS ORDERED: CefTRIAXone Sodium 1,000 MG in NS 100 ML IV SCH (12:00)
[2025-02-13] MEDS ORDERED: Ipratropium/Albuterol SulF 2.5-0.5MG/3 ML Amp INH PRN (12:05)
[2025-02-13] MEDS ORDERED: Enoxaparin 40 MG/0.4 ML SYR SC SCH (13:00)
[2025-02-13] MEDS ORDERED: Misc. Inhaler INH SCH (16:10)
[2025-02-13 18:02] LABS: Influenza A, PCR NEGATIVE (NEGATIVE); Influenza B, PCR NEGATIVE (NEGATIVE); Resp Syncytial Virus, PCR NEGATIVE (NEGATIVE); SARS-Cov-2 (COVID-19) PCR, MMC NEGATIVE (NEGATIVE)
--- NOTE | 2025-02-13 20:00 | NUR ---
ASSUMPTION OF CARE: ASSUMED CARE AT START OF SHIFT (1899). PT IS DOING WELL AND RESTING IN BED, THEY ARE ALERT AND FOLLOWING COMMANDS. LUNG SOUNDS ARE EQUAL AND COARSE THROUGHOUT, ON O2 @ 3LPM VIA NC SPO2 >95%. SINUS RYTHM WITH SBP: 110'S MAP >65 HR: 100'S. IV: PERIPHERAL IN R FOREARM AND LUE. PUREWICK IN PLACE AND CONNECTED TO CONTINUOUS SUCTION. SKIN: PINNING IN R HIP FROM PREVIOUS FRACTURE, SITE IN COVERED WITH DRESSSING. LINES AND CORDS PLACED OUT OF REACH. CALL LIGHT PLACED WITHIN REACH.
--- NOTE | 2025-02-13 21:10 | NUR ---
TRANSFER TO PCU: PT TRASNFERRED FROM ICU 8 TO PCU 5. REPORT GIVEN TO SOCIETY EDITOR. ALL PT BELONGINGS TRANSFERED WITH PT. PT TRANSPORTED VIA HOSPITAL BED AND TRASFERRED TO PCU BED VIA SLIDE SHEET.
[2025-02-13] MEDS ORDERED: Ipratropium/Albuterol SulF 2.5-0.5MG/3 ML Amp INH SCH (21:50)
[2025-02-13] MEDS ORDERED: Albuterol 2.5 MG/3 ML VIAL INH PRN (21:50)
[2025-02-14 03:22] VITALS: BP 125/69
--- NOTE | 2025-02-14 04:36 | NUR ---
SHIFT SUMMARY. PT HAS DONE WELL THROUGHOUT SHIFT OVERALL. AOX3, PLEASANT, COOPERATIVE, ABLE TO MAKE NEEDS KNOWN. HAS RESTED COMFORTABLY THROUGHOUT SHIFT. MAINTAINS ADEQUATE SATURATION ON 2 L O2 VIA NC WHILE AWAKE, HAS BEEN WEARING CPAP WHILE SLEEPING. CONTINUES TO RUN SINUS ON TELE. Q2 HOUR REPOSITIONING. THIS MORNING, PT HAD YET TO VOID DESPITE PUREWICK BEING IN PLACE. BLADDER SCAN PERFORMED, REVEALED BLADDER VOLUME OF 800 MLS. ENCOURAGED TO ATTEMPT TO VOID BUT PT WAS UNSUCCESSFUL, NOTIFIED DR. WHITT WHO ORDERED SIEGEL CATHETER D/T VOLUME OF URINE RETENTION. SIEGEL PUT IN PLACE, PT TOLERATED WELL, TOLERATING WELL AND FUNCTIONING INTENDED. PT BROADLY VERY WEAK W/ LIMITED ROM OF RLE D/T RECENT RIGHT FEMUR FX. BED LOCKED IN LOWEST POSITION. CALL LIGHT LEFT WITHIN REACH. CONTINUING TO MONITOR.
[2025-02-14 04:44] LABS: BASOPHILS ABSOLUTE AUTO 0.02 K/mm3 (0.00-0.23); BASOPHILS PERCENT AUTO 0 % (0-2); EOSINOPHILS ABSOLUTE AUTO 0.00 K/mm3 (0.00-0.68); EOSINOPHILS PERCENT AUTO 0 % (0-6); Hematocrit 26.8 % (33.0-51.0); Hemoglobin 8.1 g/dL (11.5-16.0); IMMATURE GRAN ABSOLUTE AUTO 0.13 K/mm3 (0.00-0.10); IMMATURE GRAN PERCENT AUTO 1 % (0-1); LYMPHOCYTES ABSOLUTE AUTO 0.76 K/mm3 (0.84-5.20); LYMPHOCYTES PERCENT AUTO 7 % (21-46); MONOCYTES ABSOLUTE AUTO 0.61 K/mm3 (0.16-1.47); MONOCYTES PERCENT AUTO 6 % (4-13); Mean Corpuscular HGB Conc 30.2 g/dL (31.5-36.5); Mean Corpuscular Volume 102 fL (80-100); NEUTROPHILS ABSOLUTE AUTO 8.70 K/mm3 (1.96-9.15); NEUTROPHILS PERCENT AUTO 85 % (41-73); NRBC ABSOLUTE 0.00 K/mm3 (0.00-0.02); NRBC Auto 0.0 /100 WBC (0.0-0.2); Platelet Count 314 K/mm3 (150-400); RDW Coefficient Variation 13.5 % (11.7-14.2); RDW Standard Deviation 49.9 fL (35.1-46.3)
[2025-02-14 05:13] LABS: Alanine Aminotransfer (ALT/SGP 26.0 U/L (12-78); Albumin, Blood 2.3 g/dL (3.4-5.0); Albumin/Globulin Ratio 0.6 (0.8-1.8); Anion Gap 11.0 mmol/L (3-11); Aspartate Aminotrans (AST/SGOT 54.0 U/L (12-37); Bilirubin, Total 0.5 mg/dL (0.1-1.0); Blood Urea Nitrogen 20.0 mg/dL (8-24); CO2, Blood 25.0 mmol/L (21-32); Calcium, Blood 9.4 mg/dL (8.5-10.1); Chloride, Blood 101.0 mmol/L (98-108); Creatinine, Blood 0.73 mg/dL (0.40-1.00); Globulin, Blood 3.8 g/dL (2.2-4.0); Glucose, Blood 120.0 mg/dL (70-99); Potassium, Blood 5.0 mmol/L (3.5-5.5); Sodium, Blood 132.0 mmol/L (136-145); Total Protein, Blood 6.1 g/dL (6.4-8.2)
[2025-02-14 07:30] LABS: Ferritin, Serum 339.0 ng/mL (8-252); Total Iron Binding Capacity 475.0 ug/dL (250-450)
[2025-02-14 08:16] VITALS: BP 101/57
[2025-02-14] MEDS ORDERED: Polyethylene Glycol 3350 17 gm PO PRN (09:10)
--- NOTE | 2025-02-14 10:46 | NUR ---
Assisted up to chair with gait belt, walker, and PCT and RN assisting. 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 Able to stand, take a few steps and sit in chiar. Dyspnea with the activity noted. Maintains spo2 while on 2 l/min O2 delivery.
--- NOTE | 2025-02-14 11:04 | NUR ---
Pt. is restign but reponds when this prototype engineer enters the room. Pt. welcomes my visit. Pt. is pleasant and verbalizes that she is approaching this admission with a strong lydia and trust. Listened with empathy and engagement as this prototype engineer had visited this Pt. at a previous hospital visit. Considered matters of lydia and belief. Pt. verbalized an expectation that family would visit this afternoon. Prayed with the Pt. Pt. verbalized gratitude for the spiritual care visit.
--- NOTE | 2025-02-14 13:36 | NUR ---
Pt was assisted back to bed from chair. Brother Zachary at the bedside. She has tachypnea and dyspnea with minimal activity. Also has chronic pain which is on top of her acute right hip pain. Given scheduled ultram with chocolate pudding. Instructed on use of incentive spirometer. Pt verbalized understanding of its use. Says she has used it before.
[2025-02-14 14:43] VITALS: BP 120/70
--- NOTE | 2025-02-14 18:17 | NUR ---
Pt was alert, oriented although somewhat forgetful today. She wore 2 l/min of O2 all day, had no need of PAP for respiratory support. This evening she has clear breath wounds. She is tachypneic without distress at rest , and dyspneic with activity. Able to stand and transfer from bed to chair. PT advised right leg toe touch only for [address] Garcia's operative note on last admission. Orders changed to reflect this. She has chronic pain from arthritis so her baseline pain is 6/10 she says. Scheduled ultram given as ordered and her pain was tolerable. Activity is limited by her pain and her dyspnea. She has been using the incentive spirometer very well today.
[2025-02-14 20:36] VITALS: BP 101/66
[2025-02-15 03:34] VITALS: BP 102/63
[2025-02-15 04:06] LABS: BASOPHILS ABSOLUTE AUTO 0.01 K/mm3 (0.00-0.23); BASOPHILS PERCENT AUTO 0 % (0-2); EOSINOPHILS ABSOLUTE AUTO 0.00 K/mm3 (0.00-0.68); EOSINOPHILS PERCENT AUTO 0 % (0-6); Hematocrit 25.2 % (33.0-51.0); Hemoglobin 7.7 g/dL (11.5-16.0); IMMATURE GRAN ABSOLUTE AUTO 0.22 K/mm3 (0.00-0.10); IMMATURE GRAN PERCENT AUTO 1 % (0-1); LYMPHOCYTES ABSOLUTE AUTO 0.32 K/mm3 (0.84-5.20); LYMPHOCYTES PERCENT AUTO 2 % (21-46); MONOCYTES ABSOLUTE AUTO 0.77 K/mm3 (0.16-1.47); MONOCYTES PERCENT AUTO 5 % (4-13); Mean Corpuscular HGB Conc 30.6 g/dL (31.5-36.5); Mean Corpuscular Volume 100 fL (80-100); NEUTROPHILS ABSOLUTE AUTO 15.30 K/mm3 (1.96-9.15); NEUTROPHILS PERCENT AUTO 92 % (41-73); NRBC ABSOLUTE 0.00 K/mm3 (0.00-0.02); NRBC Auto 0.0 /100 WBC (0.0-0.2); Platelet Count 380 K/mm3 (150-400); RDW Coefficient Variation 13.7 % (11.7-14.2); RDW Standard Deviation 49.2 fL (35.1-46.3)
[2025-02-15 04:28] LABS: Alanine Aminotransfer (ALT/SGP 28.0 U/L (12-78); Albumin, Blood 2.4 g/dL (3.4-5.0); Albumin/Globulin Ratio 0.6 (0.8-1.8); Anion Gap 8.0 mmol/L (3-11); Aspartate Aminotrans (AST/SGOT 41.0 U/L (12-37); Bilirubin, Total 0.3 mg/dL (0.1-1.0); Blood Urea Nitrogen 25.0 mg/dL (8-24); CO2, Blood 28.0 mmol/L (21-32); Calcium, Blood 9.3 mg/dL (8.5-10.1); Chloride, Blood 100.0 mmol/L (98-108); Creatinine, Blood 0.82 mg/dL (0.40-1.00); Globulin, Blood 3.7 g/dL (2.2-4.0); Glucose, Blood 132.0 mg/dL (70-99); Potassium, Blood 4.6 mmol/L (3.5-5.5); Sodium, Blood 131.0 mmol/L (136-145); Total Protein, Blood 6.1 g/dL (6.4-8.2)
--- NOTE | 2025-02-15 04:41 | NUR ---
SHIFT SUMMARY PT REMAINS A&OX4. FORGETFUL AT TIMES HOWEVER VERY PLEASANT. VSS ON 1L NC >90%. NO SOB NOTED. PT CONTINUES TO USE IS DEVICE FREQUENTLY AND DO FOOT EXERCISES IN BED. PT DID NOT GET OUT OF BED THROUGHOUT NIGHT. SIEGEL STILL IN PLACE CONTINUES TO DRAIN WITH GRAVITY WITH ADEQUATE AMOUNT OUT. PT REQUESTING MORE BOWEL MEDS IN AM. PT ENDORSES 6/10 PAIN. MINIMAL TO MODERATE RELIEF WITH TRAMADOL QID. PT WAS ABLE TO SLEEP COMFORTABLY THROUGHOUT NIGHT. ISLAND DRESSING TO R HIP REMAINS CDI. RLE WARM TO TOUCH WITH STRONG DORSAL PULSE. NO FURTHER QUESTIONS OR CONCERNS AT THIS TIME. WILL CONTINUE WITH PLAN OF CARE.
[2025-02-15 08:17] VITALS: BP 105/58
--- NOTE | 2025-02-15 08:24 | NUR ---
0820 - GAVE REPORT TO MED FLOOR RN, PT [facility]SF[facility] WHEELCHAIR. VSS. ON 2-3L VIA NC. PT TOOK AM MEDS WITH YOGURT ONE AT A TIME AND TOLERATED WELL.
[2025-02-15 11:22] VITALS: BP 108/65
[2025-02-15 14:24] LABS: Hematocrit 23.2 % (33.0-51.0); Hemoglobin 7.1 g/dL (11.5-16.0)
[2025-02-15 15:51] VITALS: BP 108/58
--- NOTE | 2025-02-15 18:28 | NUR ---
SHIFT SUMMARY RECEIVED CLIENT FROM PCU, ADMITTING DX OF RESPIRATORY FAILURE/COPD EXASTERBATION. CLIENT AOX4. MEDICATION COMPLIANT. ON IV ABT. HAS RECENT FEMUR FRACTURE, INCISION DRESSING CLEAN, DRY AND INTACT. PAIN CONTROLED BY SCHEDULED MEDICATION. SIEGEL FOR ACUTE RETENSION DRAINING TO GRAVITY. ON 2L OF OXYGEN. TAKES MEDICATION WHOLE WITH APPLESAUCE/PUDDING, 1 PILL AT A TIME. MEPILEX DRESSING ON MID SPINE AND OVER COCCYX. BED IS IN LOW POSITION AND CALL LIGHT IS WITHIN REACH
[2025-02-15 20:24] VITALS: BP 110/63
[2025-02-15] MEDS ORDERED: Dextran/Hypromellose/Glycerin 15 DROP/ML BTL BOTHEYES PRN (22:30)
[2025-02-16 03:08] VITALS: BP 98/61
--- NOTE | 2025-02-16 04:03 | NUR ---
SHIFT SUMMARY PATIENT HAD NO ACUTE CHANGES. ALERT ORIENTED AND ONE ASSIST TO BSC. DENIES CHEST PAIN, SOB, AND N/V. SIEGEL PATENT AND DRAINING TO GRAVITY. VSS/AFEBRILE. ON 2L O2 NC. SCHEDULE ULTRAM GIVEN PER EMAR FOR PAIN. PIVS INTACT. CALL LIGHT IN REACH. BED IN LOWEST POSITION. WILL CONTINUE TO MONITOR UNTIL DAY SHIFT NURSE ASSUMES CARE.
[2025-02-16 07:38] VITALS: BP 109/65
[2025-02-16 08:13] LABS: BASOPHILS ABSOLUTE AUTO 0.02 K/mm3 (0.00-0.23); BASOPHILS PERCENT AUTO 0 % (0-2); EOSINOPHILS ABSOLUTE AUTO 0.00 K/mm3 (0.00-0.68); EOSINOPHILS PERCENT AUTO 0 % (0-6); Hematocrit 23.9 % (33.0-51.0); Hemoglobin 7.4 g/dL (11.5-16.0); IMMATURE GRAN ABSOLUTE AUTO 0.30 K/mm3 (0.00-0.10); IMMATURE GRAN PERCENT AUTO 2 % (0-1); LYMPHOCYTES ABSOLUTE AUTO 0.39 K/mm3 (0.84-5.20); LYMPHOCYTES PERCENT AUTO 2 % (21-46); MONOCYTES ABSOLUTE AUTO 1.85 K/mm3 (0.16-1.47); MONOCYTES PERCENT AUTO 11 % (4-13); Mean Corpuscular HGB Conc 31.0 g/dL (31.5-36.5); Mean Corpuscular Volume 100 fL (80-100); NEUTROPHILS ABSOLUTE AUTO 15.12 K/mm3 (1.96-9.15); NEUTROPHILS PERCENT AUTO 86 % (41-73); NRBC ABSOLUTE 0.02 K/mm3 (0.00-0.02); NRBC Auto 0.1 /100 WBC (0.0-0.2); Platelet Count 432 K/mm3 (150-400); RDW Coefficient Variation 14.2 % (11.7-14.2); RDW Standard Deviation 50.5 fL (35.1-46.3)
[2025-02-16 08:53] LABS: Alanine Aminotransfer (ALT/SGP 29.0 U/L (12-78); Albumin, Blood 2.6 g/dL (3.4-5.0); Albumin/Globulin Ratio 0.8 (0.8-1.8); Anion Gap 6.0 mmol/L (3-11); Aspartate Aminotrans (AST/SGOT 26.0 U/L (12-37); Bilirubin, Total 0.3 mg/dL (0.1-1.0); Blood Urea Nitrogen 26.0 mg/dL (8-24); CO2, Blood 30.0 mmol/L (21-32); Calcium, Blood 10.1 mg/dL (8.5-10.1); Chloride, Blood 99.0 mmol/L (98-108); Creatinine, Blood 0.73 mg/dL (0.40-1.00); Globulin, Blood 3.3 g/dL (2.2-4.0); Glucose, Blood 99.0 mg/dL (70-99); Potassium, Blood 4.3 mmol/L (3.5-5.5); Sodium, Blood 131.0 mmol/L (136-145); Total Protein, Blood 5.9 g/dL (6.4-8.2)
[2025-02-16] MEDS ORDERED: NS 250 ML IV PRN (12:05)
[2025-02-16 15:54] VITALS: BP 115/69
--- NOTE | 2025-02-16 19:17 | NUR ---
SHIFT SUMMARY CLIENT AOX4. MEDICATION COMPLAINT. NO C/O PAIN THIS SHIFT. IV ABT CONTINUES. SIEGEL REMAINS IN PLACE AND DRAINING TO GRAVITY. BED IS IN LOW POSITION AND CALL LIGHT IS WITHIN REACH
[2025-02-16 21:12] VITALS: BP 116/69
--- NOTE | 2025-02-17 04:06 | NUR ---
SHIFT SUMMARY PATIENT HAD NO ACUTE CHANGES. ALERT ORIENTED AND BEDREST. RIGHT HIP REPAIR. DENIES CHEST PAIN, SOB, AND N/V. PIVS INTACT. SIEGEL PATENT AND DRAINING TO GRAVITY. ON 2L O2 NC BASELINE. TAKES MED ONE EACH WITH PUDDING. POSSIBLE DC. CALL LIGHT IN REACH. BED IN LOWEST POSITION. WILL CONTINUE TO MONITOR UNTIL DAY SHIFT NURSE ASSUMES CARE.
[2025-02-17 04:11] VITALS: BP 116/67
[2025-02-17 07:08] LABS: BASOPHILS ABSOLUTE AUTO 0.02 K/mm3 (0.00-0.23); BASOPHILS PERCENT AUTO 0 % (0-2); EOSINOPHILS ABSOLUTE AUTO 0.05 K/mm3 (0.00-0.68); EOSINOPHILS PERCENT AUTO 0 % (0-6); Hematocrit 25.2 % (33.0-51.0); Hemoglobin 7.8 g/dL (11.5-16.0); IMMATURE GRAN ABSOLUTE AUTO 0.46 K/mm3 (0.00-0.10); IMMATURE GRAN PERCENT AUTO 3 % (0-1); LYMPHOCYTES ABSOLUTE AUTO 0.47 K/mm3 (0.84-5.20); LYMPHOCYTES PERCENT AUTO 3 % (21-46); MONOCYTES ABSOLUTE AUTO 1.81 K/mm3 (0.16-1.47); MONOCYTES PERCENT AUTO 12 % (4-13); Mean Corpuscular HGB Conc 31.0 g/dL (31.5-36.5); Mean Corpuscular Volume 100 fL (80-100); NEUTROPHILS ABSOLUTE AUTO 12.65 K/mm3 (1.96-9.15); NEUTROPHILS PERCENT AUTO 82 % (41-73); NRBC ABSOLUTE 0.02 K/mm3 (0.00-0.02); NRBC Auto 0.1 /100 WBC (0.0-0.2); Platelet Count 413 K/mm3 (150-400); RDW Coefficient Variation 14.3 % (11.7-14.2); RDW Standard Deviation 51.7 fL (35.1-46.3)
[2025-02-17 07:27] LABS: Anion Gap 4.0 mmol/L (3-11); Blood Urea Nitrogen 20.0 mg/dL (8-24); CO2, Blood 31.0 mmol/L (21-32); Calcium, Blood 10.0 mg/dL (8.5-10.1); Chloride, Blood 100.0 mmol/L (98-108); Creatinine, Blood 0.56 mg/dL (0.40-1.00); Glucose, Blood 84.0 mg/dL (70-99); Potassium, Blood 4.4 mmol/L (3.5-5.5); Sodium, Blood 131.0 mmol/L (136-145)
[2025-02-17 08:51] VITALS: BP 128/67
[2025-02-17 16:51] VITALS: BP 131/68
--- NOTE | 2025-02-17 18:16 | NUR ---
SHIFT SUMMARY PT UP TO BSC FOR BM TODAY. MEDICATED PER EMAR FOR SCHEDULED TRAMADOL. DR. LUIS NOTIFIED THAT PT TAKES TYLENOL AT HOME QID WITH HER TRAMADOL AND IS REQUESTING THIS. ORDER FOR 500MG PO TYLENOL QID PLACED. IV ACCESS LOST TODAY WELL. ORDER FOR NO IV ACCESS OBTAINED FROM DR. LUIS. PT PLEASANT & COOPERATIVE T/O SHIFT. SIEGEL CATH REMOVED TODAY. PT DID VOID AFTER REMOVAL. A SMALL AMOUNT, PT BLADDER SCANNED AFTER AND 102 REMAINED. NO OTHER ACUTE CHANGES IN ASSESSMENT AT THIS TIME. VS REVIEWED. CALL LIGHT IN REACH.
[2025-02-17 19:37] VITALS: BP 119/89
[2025-02-18 03:06] VITALS: BP 143/84
[2025-02-18 05:31] LABS: BASOPHILS ABSOLUTE AUTO 0.03 K/mm3 (0.00-0.23); BASOPHILS PERCENT AUTO 0 % (0-2); EOSINOPHILS ABSOLUTE AUTO 0.08 K/mm3 (0.00-0.68); EOSINOPHILS PERCENT AUTO 0 % (0-6); Hematocrit 28.0 % (33.0-51.0); Hemoglobin 8.7 g/dL (11.5-16.0); IMMATURE GRAN ABSOLUTE AUTO 0.65 K/mm3 (0.00-0.10); IMMATURE GRAN PERCENT AUTO 4 % (0-1); LYMPHOCYTES ABSOLUTE AUTO 0.67 K/mm3 (0.84-5.20); LYMPHOCYTES PERCENT AUTO 4 % (21-46); MONOCYTES ABSOLUTE AUTO 1.97 K/mm3 (0.16-1.47); MONOCYTES PERCENT AUTO 11 % (4-13); Mean Corpuscular HGB Conc 31.1 g/dL (31.5-36.5); Mean Corpuscular Volume 99 fL (80-100); NEUTROPHILS ABSOLUTE AUTO 14.74 K/mm3 (1.96-9.15); NEUTROPHILS PERCENT AUTO 81 % (41-73); NRBC ABSOLUTE 0.03 K/mm3 (0.00-0.02); NRBC Auto 0.2 /100 WBC (0.0-0.2); Platelet Count 517 K/mm3 (150-400); RDW Coefficient Variation 14.2 % (11.7-14.2); RDW Standard Deviation 50.9 fL (35.1-46.3)
[2025-02-18 05:47] LABS: Anion Gap 6.0 mmol/L (3-11); Blood Urea Nitrogen 19.0 mg/dL (8-24); CO2, Blood 32.0 mmol/L (21-32); Calcium, Blood 10.8 mg/dL (8.5-10.1); Chloride, Blood 100.0 mmol/L (98-108); Creatinine, Blood 0.68 mg/dL (0.40-1.00); Glucose, Blood 84.0 mg/dL (70-99); Potassium, Blood 4.2 mmol/L (3.5-5.5); Sodium, Blood 134.0 mmol/L (136-145)
--- NOTE | 2025-02-18 05:47 | NUR ---
SHIFT SUMMARY A&OX2-4. ORIENTATION FLUCUATED THROUGHOUT THE NIGHT. PT BECAME CONFUSED AND FORGETFUL AND WAS SCARED BECAUSE SHE DIDN'T KNOW WHERE SHE WAS. EASILY REDIRECTABLE. ABLE TO MAKE ALL NEEDS KNOWN AND USES CALL LIGHT APPROPRIATELY. RIGHT HIP DRESSING CHANGED DUE TO PRIOR DRESSING SATURATION. PT TOLERATED THIS WELL. PT CONTINUES TO WEAR O2 VIA NC AT 2 LPM AND WORKED WITH RT THROUGHOUT THE NIGHT. SHE USED THE BEDPAN PER HER REQUEST OVER NIGHT. SHE WAS ABLE TO VOID 100 ML X 3 BUT LOWER ABD BECAME CLEARLY DISTENDED, FIRM AND TENDER. BLADDER SCAN SHOWED >340 MLS. ORDERS RECEIVED TO PERFORM STRAIGHT CATHETER. 500 MLS REMOVED OF LIGHT YELLOW URINE. PT TOLERATED WELL. POST VOID SCAN SHOWED 0 AND LOWER ABD SOFT. ORDERS ARE TO RESCAN IN 6 HOURS. WILL REPORT TO DAY SHIFT RN. PT CURRENTLY RESTING IN BED AT LOWEST POSITION WITH CALL LIGHT WITHIN REACH.
[2025-02-18 07:11] VITALS: BP 141/83
--- NOTE | 2025-02-18 09:08 | NUR ---
PATIENT CONFUSED THIS AM, STATING SHE DOES NOT KNOW WHERE SHE IS AND WHO SHE IS. ASKING IF SHE WAS A HORSE. PATIENT TOLD NAME AND THAT SHE IS IN THE HOSPITAL. PATIENT THEN ASKED WHY AND WANTED TO KNOW WHY FAMILY HAS NOT COME TO SEE HER. PATIENT FACE FLUSH, ASKING FOR WATER. UNABLE TO SAY WHAT IS WRONG AT THIS TIME. CALL PLACED TO AT 0830 FOR EVALUATION. WAITING FOR ROUNDING. CONTINUE TO PLACE EYES ON PATIENT AND TALK TO HER. PATIENT YELLS WHEN NAME STATED.
[2025-02-18] MEDS ORDERED: NS 1,000 ML BAG IR SCH (09:30)
[2025-02-18] MEDS ORDERED: NS 500 ML IV ONE (09:35)
--- NOTE | 2025-02-18 10:06 | NUR ---
ROUNDED ON PATIENT. VBG AND IV WITH 500 ML BOLUS ORDERED. PATIENT DOES NOT HAVE ADEQUATE VEINS FOR IV START. MIDLINE REQUEST TO [facility].
[2025-02-18 11:53] LABS: pH Blood Venous 7.38 (7.34-7.37)
[2025-02-18 11:54] LABS: Source, Urine Clean Catch
[2025-02-18 12:15] LABS: Bilirubin, Urine Neg (Neg); Glucose Qualitative, Urine Neg (Neg); Ketones, Urine Neg (Neg); Leukocyte Esterase, Urine Neg (Neg); Protein, Urine Neg (Neg); Specific Gravity, Urine 1.010 (1.003-1.022); Urobilinogen, Urine NORM (Normal)
[2025-02-18 12:16] LABS: Color, Urine Pale Yellow (P-Yellow)
[2025-02-18 12:24] LABS: White Blood Cells, Urine 0-2 /hpf (0-5)
--- NOTE | 2025-02-18 15:03 | NUR ---
PATIENTS BROTHER AT BEDSIDE ASKING THIS NURSE IF THERE WAS A CHAIN OF COMMAND FOR PATIENT BELONGINGS PATIENTS PURSE AND CELL PHONE ARE MISSING PER BROTHER. THIS RN LET VISITOR KNOW THAT VALUABLES ARE ENCOURAGED TO BE TAKEN HOME BY FAMILY MEMBERS OR SENT TO SECURITY UNTIL DISCHARGE. PATIENT CAME VIA AMBULANCE FROM [facility] AND UNSURE IF HER PURSE CAME WITH HER. STATING SHE HAS NOT HAD HER CELL PHONE SINCE SHE WAS TRANSFERED HERE. BROTHER STATED PATIENT CARRIES AN ANTIQUE BROACH IN HER PURSE SAYING ITS A 500k VALUE AND HER ROLEX IS USUALLY IN HER PURSE WELL. THIS RN ENCOURAGED BROTHER TO LOOK AT [facility] OR PATIENTS HOME THEIR ARE NO VALUABLES IN THE PATIENTS ROOM.
--- NOTE | 2025-02-18 16:13 | NUR ---
PATIENT UNAWARE OF SELF OR SURROUNDINGS. LABS, XRAY AND UA DONE. PATIENT IMPROVED BY LUNCH AND WAS ABLE TO STATE NAME AND FOR MEDICATIONS. DRESSING ON RIGHT HIP CLEAN DRY AND INTACT. PATIENT HAS NOTED BRUISING IN [place]UD[place]INA AREA AND INNER THIGH OF FRACTURED HIP. PATIENT ABLE TO EAT SMALL AMOUNT. PAIN MEDS GIVEN. NO CONCERNS.
[2025-02-18 16:24] VITALS: BP 123/81
[2025-02-18] MEDS ORDERED: Ipratropium/Albuterol SulF 2.5-0.5MG/3 ML Amp INH SCH (19:40)
[2025-02-18 20:30] VITALS: BP 116/74
[2025-02-19 05:20] VITALS: BP 137/78
--- NOTE | 2025-02-19 05:58 | NUR ---
SHIFT SUMMARY A&OX4. ABLE TO MAKE NEEDS KNOWN. TOOK EVENING MEDS WITH PUDDING. SIEGEL CATHETER REMAINS PATENT AND DRAINING LIGHT YELLOW URINE. PT CONTINUES TO WEAR O2 VIA NC AT 2 LPM. DENIES SOB. PT WAS ABLE TO REST COMFORTABLY THROUGHOUT THE NIGHT WITH HOB ELEVATED, BED IN LOWEST POSITION AND CALL LIGHT WITHIN REACH.
[2025-02-19 07:01] LABS: BASOPHILS ABSOLUTE AUTO 0.01 K/mm3 (0.00-0.23); BASOPHILS PERCENT AUTO 0 % (0-2); EOSINOPHILS ABSOLUTE AUTO 0.63 K/mm3 (0.00-0.68); EOSINOPHILS PERCENT AUTO 5 % (0-6); Hematocrit 26.0 % (33.0-51.0); Hemoglobin 7.9 g/dL (11.5-16.0); IMMATURE GRAN ABSOLUTE AUTO 0.51 K/mm3 (0.00-0.10); IMMATURE GRAN PERCENT AUTO 4 % (0-1); LYMPHOCYTES ABSOLUTE AUTO 0.42 K/mm3 (0.84-5.20); LYMPHOCYTES PERCENT AUTO 4 % (21-46); MONOCYTES ABSOLUTE AUTO 1.01 K/mm3 (0.16-1.47); MONOCYTES PERCENT AUTO 9 % (4-13); Mean Corpuscular HGB Conc 30.4 g/dL (31.5-36.5); Mean Corpuscular Volume 101 fL (80-100); NEUTROPHILS ABSOLUTE AUTO 9.05 K/mm3 (1.96-9.15); NEUTROPHILS PERCENT AUTO 78 % (41-73); NRBC ABSOLUTE 0.00 K/mm3 (0.00-0.02); NRBC Auto 0.0 /100 WBC (0.0-0.2); Platelet Count 440 K/mm3 (150-400); RDW Coefficient Variation 14.6 % (11.7-14.2); RDW Standard Deviation 53.1 fL (35.1-46.3)
[2025-02-19 07:14] LABS: Anion Gap 3.0 mmol/L (3-11); Blood Urea Nitrogen 15.0 mg/dL (8-24); CO2, Blood 33.0 mmol/L (21-32); Calcium, Blood 9.8 mg/dL (8.5-10.1); Chloride, Blood 103.0 mmol/L (98-108); Creatinine, Blood 0.72 mg/dL (0.40-1.00); Glucose, Blood 85.0 mg/dL (70-99); Potassium, Blood 4.1 mmol/L (3.5-5.5); Sodium, Blood 135.0 mmol/L (136-145)
[2025-02-19 07:16] VITALS: BP 128/84
[2025-02-19] MEDS ORDERED: XARELTO10 M1 PO (11:30)
[2025-02-19 15:19] VITALS: BP 121/69
--- NOTE | 2025-02-19 17:17 | NUR ---
PATIENT AWAKE AND COOPERATIVE WITH CARE. ABLE TO TAKE MEDICATIONS TODAY AND HOPEFUL WITH THE NEWS THAT SHE WILL BE TRANSFERRED TO [facility] FOR REHAB IN THE NEXT DAY OR TWO. PATIENT HAS NO CONCERNS AT THIS TIME.
[2025-02-19 19:37] VITALS: BP 110/71
[2025-02-20] MEDS ORDERED: FentaNYL Citrate 50 MCG/ML 2 ML Injection IV ONE (02:00)
[2025-02-20 02:06] VITALS: BP 114/62
[2025-02-20] MEDS ORDERED: FentaNYL Citrate 50 MCG/ML 2 ML Injection IV PRN (06:15)
--- NOTE | 2025-02-20 07:39 | NUR ---
SHIFT SUMMARY PT READY TO GO TO SLEEP FROM START OF SHIFT. RESTING COMFORTABLY. PT COMPLAINED OF PAIN APPROX 0145. CALLED RESIDENT, APPROX 0205, ONE TIME DOSE FENTANYL FOR BREAKTHROUGH PAIN GIVEN PER EMAR. PT STILL HAVING SIGNIFICANT PAIN. DOCTOR LANDA ORDERED BREAKTHROUGH PAIN MANAGEMENT PRN. WILL PASS ON TO DAY SHIFT RN. PT PAIN LEVEL HOVERING AT 8/10 THROUGH SHIFT EVEN WITH SCHEDULED TYLENOL AND TRAMADOL.
[2025-02-20 07:58] VITALS: BP 136/73
[2025-02-20 11:01] LABS: Hematocrit 27.9 % (33.0-51.0); Hemoglobin 8.4 g/dL (11.5-16.0)
--- NOTE | 2025-02-20 14:06 | NUR ---
DISCHARGE SUMMARY: PATIENT DISCHARGED TO [facility] AT 1115. PATIENT WAS TRANSPORTED VIA W/C AND WITH SIEGEL CATH. PATIENT WAS GIVEN BELONGINGS. THIS DEALER COMPLIANCE REPRESENTATIVE CALLED TO GIVE REPORT AT 1212 AND WAS DIRECTED TO VOICEMAIL. LEFT CALL BACK INFO. CALLED AGAIN AT 1415 AND WAS NOT ABLE TO GIVE REPORT. THIS DEALER COMPLIANCE REPRESENTATIVE LEFT NAME AND CALL BACK NUMBER FOR REPORT. SHIFT SUMMARY: PATIENT A+O X4 AND COOPERATIVE WITH CARE. S1, S2 HEARD UPON ASCULTATION. LUNGS CLEAR BUT DIMINISHED THROUGHOUT, CURRENTLY ON 3L O2 VIA NC. PATIENT NOTED TO BE TTWB ON RLE D/T RECENT HIP REPLACEMENT. ORDER IN PLACE. FOR PAIN MANAGEMENT, TRAMADOL AND TYLENOL GIVEN THIS AM, SEE EMAR FOR DETAILS. SIEGEL DRAINING TO GRAVITY WITH CLEAR YELLOW URINE OUTPUT. POWERGLIDE FLUSHED WITH 20ML OF NS. NO REDNESS OR SWELLING OBSERVED AT SITE.
== END 2025-02-20 11:35 | DRG 189 ==
LOC: ER 09:13 → MEDS 11:04 → PCU 11:04 → ICUE 11:05 → PCU 21:18 → MEDS 02-15 09:15 → ENPENDDIS 02-19 14:20 → MEDS 02-20 11:35
PROVIDERS: Emergency Medicine; ADMIT Hospitalist
PROC: 0T9B70Z Drainage of Bladder with Drainage Device, Via Natural or Artificial Opening (ICD-10-PCS; principal; 2025-02-13)
PROC: 3E03329 Introduction of Other Anti-infective into Peripheral Vein, Percutaneous Approach (ICD-10-PCS; 2025-02-13)
DX: J96.01 Acute respiratory failure with hypoxia (principal); N39.0 Urinary tract infection, site not specified; J44.1 Chronic obstructive pulmonary disease with (acute) exacerbation; E87.21 Acute metabolic acidosis; D62 Acute posthemorrhagic anemia; J98.11 Atelectasis; F05 Delirium due to known physiological condition; I73.9 Peripheral vascular disease, unspecified; E03.9 Hypothyroidism, unspecified; M19.90 Unspecified osteoarthritis, unspecified site; M81.0 Age-related osteoporosis without current pathological fracture; D50.9 Iron deficiency anemia, unspecified; Z87.81 Personal history of (healed) traumatic fracture; Z87.891 Personal history of nicotine dependence; Z88.8 Allergy status to other drugs, medicaments and biological substances; Z88.5 Allergy status to narcotic agent; Z88.1 Allergy status to other antibiotic agents; Z79.899 Other long term (current) drug therapy; Z79.890 Hormone replacement therapy; Z85.118 Personal history of other malignant neoplasm of bronchus and lung; Z99.81 Dependence on supplemental oxygen
CPT/HCPCS: 36415; 71045; 71260; 80048; 80053; 81001; 82607; 82728; 82746; 82803; 83540; 83550; 83605; 83880; 84145; 84484; 85014; 85018; 85025; 85610; 85730; 87040; 87637; 93005; 93010; 93306; 94640; 94644; 94660; 94664; 94760; 94762; 96374-59; 96375-59; 97110; 97162; 97530; 99285-25; A9270; C1751; J0456; J0696; J1200; J1650; J1938; J2405; J2919; J3010; J7040; J7050; J7512; Q9967

== ENCOUNTER 2025-04-09 19:09 | Observation (INO) | payer OTHER ==
[~2025-04-09] VITALS: Ht 157.5 cm; Wt 47.3 kg
[~2025-04-09 19:09] MED LIST changes: +ALBU2.5V5 INH; +ARTIFICIAL TEAR15 M2 BOTHEYES; +BISA10S PR; +BUDESONIDE-FO10.2 G2 INH; +CIPR500 PO; +K-Phos Origina500 MG PO; +METO25 PO; +MIRALAX17 GM PO; +NITR.4SL SL; +NYSTATIN100000 U10 SS; +TRAZ50 PO; -Ventolin5 MG/1 ML INH; +Vitamin B Comple1 EA PO; +XARELTO10 M1 PO
[2025-04-09 19:44] LABS: BASOPHILS ABSOLUTE AUTO 0.02 K/mm3 (0.00-0.23); BASOPHILS PERCENT AUTO 0 % (0-2); EOSINOPHILS ABSOLUTE AUTO 0.00 K/mm3 (0.00-0.68); EOSINOPHILS PERCENT AUTO 0 % (0-6); Hematocrit 37.5 % (33.0-51.0); Hemoglobin 11.4 g/dL (11.5-16.0); IMMATURE GRAN ABSOLUTE AUTO 0.15 K/mm3 (0.00-0.10); IMMATURE GRAN PERCENT AUTO 1 % (0-1); LYMPHOCYTES ABSOLUTE AUTO 0.63 K/mm3 (0.84-5.20); LYMPHOCYTES PERCENT AUTO 5 % (21-46); MONOCYTES ABSOLUTE AUTO 0.51 K/mm3 (0.16-1.47); MONOCYTES PERCENT AUTO 4 % (4-13); Mean Corpuscular HGB Conc 30.4 g/dL (31.5-36.5); Mean Corpuscular Volume 102 fL (80-100); NEUTROPHILS ABSOLUTE AUTO 11.27 K/mm3 (1.96-9.15); NEUTROPHILS PERCENT AUTO 90 % (41-73); NRBC ABSOLUTE 0.00 K/mm3 (0.00-0.02); NRBC Auto 0.0 /100 WBC (0.0-0.2); Platelet Count 319 K/mm3 (150-400); RDW Coefficient Variation 13.4 % (11.7-14.2); RDW Standard Deviation 50.9 fL (35.1-46.3)
[2025-04-09 20:22] LABS: Alanine Aminotransfer (ALT/SGP 21.0 U/L (12-78); Albumin, Blood 3.0 g/dL (3.4-5.0); Albumin/Globulin Ratio 1.0 (0.8-1.8); Anion Gap 4.0 mmol/L (3-11); Aspartate Aminotrans (AST/SGOT 24.0 U/L (12-37); Bilirubin, Total 0.5 mg/dL (0.1-1.0); Blood Urea Nitrogen 17.0 mg/dL (8-24); CO2, Blood 33.0 mmol/L (21-32); Calcium, Blood 10.4 mg/dL (8.5-10.1); Chloride, Blood 108.0 mmol/L (98-108); Creatinine, Blood 0.54 mg/dL (0.40-1.00); Globulin, Blood 2.9 g/dL (2.2-4.0); Glucose, Blood 122.0 mg/dL (70-99); Potassium, Blood 4.3 mmol/L (3.5-5.5); Sodium, Blood 141.0 mmol/L (136-145); Total Protein, Blood 5.9 g/dL (6.4-8.2)
[2025-04-09] MEDS ORDERED: Glycopyrrolate 0.2 MG/ML 1MLVIAL IV PRN (21:05)
[2025-04-09] MEDS ORDERED: LevoFLOXacin 750 MG/D5W 150ML 150 ML IV ONE (21:15)
[2025-04-09] MEDS ORDERED: Acetaminophen325 M1 PO (22:00)
[2025-04-09] MEDS ORDERED: TRAM50 PO (22:00)
[2025-04-09] MEDS ORDERED: Ipratropium/Albuterol SulF 2.5-0.5MG/3 ML Amp INH PRN (23:30)
[2025-04-09] MEDS ORDERED: Ondansetron HCl 2 MG / ML 2ML Vial IV PRN (23:30)
[2025-04-09] MEDS ORDERED: FLU VACC TS2025(65UP)/MF59C/PF 45 MCG/0.5 ML SYRINGE IM SCH (23:30)
[2025-04-10 01:14] VITALS: BP 126/62
--- NOTE | 2025-04-10 01:15 | NUR ---
Arrival to Unit Patient arrived to unit around 0100 via gurney. Slide transfer to bed w/ 3PA. Painful to RLE, recent hip surgery. Incision sites are c/d/i, well approximated, healing well. AOx2-3. 3L O2 via NC, sats WDL. Appears tired. Conversates w/ staff. Masoud, ISIDRA and myself to assume primary RN roles. Awaiting Palliative Care consult to initiate comfort measures and transition to Hospice on d/c back to [facility].
[2025-04-10 01:36] LABS: pH Blood Venous 7.46 (7.34-7.37)
[2025-04-10 06:46] LABS: Source, Urine Straight Cath
[2025-04-10 06:52] LABS: Bilirubin, Urine Neg (Neg); Glucose Qualitative, Urine Neg (Neg); Ketones, Urine Neg (Neg); Leukocyte Esterase, Urine 2+ (Neg); Protein, Urine Neg (Neg); Specific Gravity, Urine 1.010 (1.003-1.022); Urobilinogen, Urine NORM (Normal)
[2025-04-10 06:59] LABS: Color, Urine Pale Yellow (P-Yellow)
[2025-04-10 07:00] LABS: Red Blood Cells, Urine 25-50 /hpf (0-2); White Blood Cells, Urine 50-100 /hpf (0-5)
[2025-04-10 07:53] VITALS: BP 147/80
[2025-04-10] MEDS ORDERED: Albuterol 2.5 MG/3 ML VIAL INH PRN (09:15)
[2025-04-10] MEDS ORDERED: Ipratropium/Albuterol SulF 2.5-0.5MG/3 ML Amp INH SCH (09:15)
[2025-04-10 09:18] LABS: Influenza A, PCR NEGATIVE (NEGATIVE); Influenza B, PCR NEGATIVE (NEGATIVE); Resp Syncytial Virus, PCR NEGATIVE (NEGATIVE)
[2025-04-10] MEDS ORDERED: Dextran/Hypromellose/Glycerin 15 DROP/ML BTL BOTHEYES PRN (09:20)
[2025-04-10 09:24] LABS: SARS-Cov-2 (COVID-19) PCR, MMC POSITIVE (NEGATIVE)
[2025-04-10] MEDS ORDERED: Polyethylene Glycol 3350 17 gm PO SCH (10:00)
[2025-04-10] MEDS ORDERED: Budesonide 0.5 MG/2 ML RESP INH SCH (10:00)
[2025-04-10 11:53] VITALS: BP 118/62
--- NOTE | 2025-04-10 12:28 | NUR ---
MET WITH PATIENT AND HER NEPHEW/POA TOMAS. [facility] CONVERSATION. PATIENT IS MORE SOMULENT TODAY THAN YESTERDAY. TOMAS RECGONIZES A DECLINE OVER THE LAST FEW DAYS AND FEELS LIKE IMPLEMENTING COMFORT MEASURES WOULD BE APPROPRIATE AT THIS TIME. THERAPUTIC CONVERSATION. TOMAS WILL DISCUSS WITH HIS FATHER (PATIENTS BROTHER) AND CALL LATER TO LET US KNOW THE OUTCOME OF THAT DISCUSSION.
[2025-04-10] MEDS ORDERED: CefTRIAXone Sodium 1,000 MG in NS 100 ML IV SCH (13:00)
[2025-04-10] MEDS ORDERED: Nystatin 100,000 Unit/ML Susp 5 ML UDC MT SCH (13:00)
[2025-04-10] MEDS ORDERED: Morphine Sulfate 20 MG/1ML 1 ML Oral Syringe SL PRN (14:25)
--- NOTE | 2025-04-10 14:48 | NUR ---
heat pack on right hip, leg scds on, heals on pillow.
[2025-04-10] MEDS ORDERED: NS 250 ML IV PRN (15:00)
--- NOTE | 2025-04-10 16:01 | NUR ---
CALL FROM SPEECH THERAPY. PATIENT IS REQUESTING TO TRANSITION TO COMFORT CARE AND REPORTS THAT SHE IS "READY TO GO HOME" WHEN ASKED FOR CLARIFICATION SHE EXPRESSED THAT "WHEN SHE DIES TO LET HER" I CAME TO DISCUSS WITH HER AND SHE WAS CLEAR THAT SHE WANTED TO "BE COMFORTABLE" I ASKED IF SHE WAS UNDERSTOOD THAT THIS WOULD MEAN HOSPICE. SHE EXPRESSED UNDERSTANDING. CALLED PATIENTS NEPHEW AND HE WAS AGREEABLE, OFFERED TO BARCENAS PATIENTS BROTHER. CALLED HIM AND HE WAS ALSO AGREEABLE WITH THE PLAN OF COMFORT CARE AND HOSPICED.
--- NOTE | 2025-04-10 16:57 | NUR ---
"Spiritual Care Visit | Comfort Care Pt. is resting but is awake when I come to bedside. Pt. displayed evidence of being very direct annd engaging. Pt. verbalized that she was ready to meet Shankar, and that she only wanted to go home, if home was heaven. Listen with empahty and pastoral encouragement. Aurora spencer has seen the Pt. frequently. Prayed for the Pt. to experience comfort for now. Pt. verbalized gratitude for the visit and prayer."
--- NOTE | 2025-04-10 18:43 | NUR ---
SHIFT SUMMARY A&OX4, VSS, REFUSED PT/OT TODAY, STATES "BECAUSE WHEN I MOVE POOP GOES EVERYWHERE," MEDICATED PER MAR FOR PAIN, CONTINUES TO HAVE POOR PO INTAKE, BEDRESTING, CALL LIGHT IN REACH, WILL CONT TO QUITAIOR.
--- NOTE | 2025-04-11 05:11 | NUR ---
PT STILL ON COMFORT MEASURES, COMPLAINS OF GENERALIZED 9/10 PAIN THAT SHE "ALWAYS HAS" PT WAS GIVEN ROXINUL 2X AND WAS BECOMING AGITATED ABOUT NOT KNOWING WHERE SHE WAS. PT RECEIVED 1MG ATIVAN AND WAS ABLE TO GET SOME MUCH NEEDED REST. BREATHING IS MORE RELAXED AND CURRENTLY HAS NO COMPLAINTS OF PAIN. APPEARS COMFORTABLE.
[2025-04-11] MEDS ORDERED: Formoterol/Mometasone MDI 5/100 mcg 13 GM INH SCH (08:40)
[2025-04-11 09:04] VITALS: BP 103/63
--- NOTE | 2025-04-11 15:51 | NUR ---
Spiritual Care Visit. Pt. has eyes upen but does not respond or track with me conversation. A Palliative Prayer is prayed with the Pt. Will remain available to Pt. and any family.
--- NOTE | 2025-04-11 15:57 | NUR ---
PATIENT RESTING DURING MY ROUNDS. DISCUSSED CASE WITH PROVIDER
--- NOTE | 2025-04-11 18:21 | NUR ---
SHIFT SUMMARY: PATIENT SOMULENT THE MAJORITY OF THIS SHIFT. LUNGS STILL HAVE NOTICABLE CRACKLES AND ARE VERY DIMINISHED. EDEMA STILL PRESSENT ON BOTH BL UE AND LE. WHEN AROUSING THE PATIENT, PATIENT BEST RESPONDS BY SHAKING HEAD UP AND DOWN (YES OR NO QUESTIONS). PATIENT MEDICATED FOR PAIN THROUGHOUT THIS SHIFT, SEE EMAR FOR DETAILS. PLAN TO POSSIBLE D/C BACK TO [facility] 04/12/25 ON COMFORT MEASURES.
--- NOTE | 2025-04-11 19:27 | NUR ---
PALLIATIVE CARE VISIT: 1230 SUPPORTIVE VISIT MADE TODAY. PT IS MINIMALLY RESPONSIVE AT THIS TIME. SHE DOES WAKE UP BUT IMMEDIATELY FALLS BACK ASLEEP. SHE HAS STRONG BUT IRREGULAR RADIAL PULSES. NO MOTTLING. PT HAS AUDIBLE SECRETIONS. PAINAD IS 0/10. NECK PILLOW PROVIDED FOR COMFORT. NO FAMILY PRESENT AT THIS TIME.
[2025-04-11] MEDS ORDERED: LevoFLOXacin 750 MG/D5W 150ML 150 ML IV SCH (21:00)
--- NOTE | 2025-04-12 04:52 | NUR ---
SHIFT SUMMARY: PATIENT ON COMFORT CARE MEASURE. PATIENT RESPONDS TO VERBAL AND PAINFUL STIMULI, MUMBLED SPEECH. PATIENT REPOSITION AND MEDICATED PER EMAR FOR COMFORT. PATIENT RESPIRATION ABOUT 11-12 BREATHS/ MIN, NO ORAL INTAKE, ORAL CARE DONE. PATIENT HAS SIEGEL FOR END OF LIFE COMFORT CARE, PATENT DRAINING 100 MLS YELLOW URINE THIS SHIFT. BED IN LOWEST POSITION. BED ALARM ON FOR SAFETY. CALL LIGHT IN REACH.
[2025-04-12] MEDS ORDERED: MORP20L SL (10:21)
[2025-04-12] MEDS ORDERED: Ativan1 MG PO (10:22)
[2025-04-12] MEDS ORDERED: ONDA4ODT MM (10:24)
--- NOTE | 2025-04-12 13:13 | NUR ---
DISCHARGE PT AOX0, SEMI COOPERATIVE, NOT ABLE TO MAKE NEEDS KNOWN. PT IS COMFORT CARE, DISCHARGING TO [facility] FOR HOSPICE. IV DC'D BY THIS RN WITHOUT EVENTS. ON 2L O2 CURRENLTY. TRANFERRED VIA [facility] LIFT DUE TO GURNEY NOT BEING ABLE TO BE "PAID FOR" BY INSURANCE. THIS RN GAVE REPORT TO "ROGER" OF [facility].
== END 2025-04-12 13:40 ==
LOC: ER 19:09 → MEDS 19:10
PROVIDERS: Emergency Medicine; ADMIT Internal Medicine
DX: I11.0 Hypertensive heart disease with heart failure (principal); I50.30 Unspecified diastolic (congestive) heart failure; G92.8 Other toxic encephalopathy; R62.7 Adult failure to thrive; J44.9 Chronic obstructive pulmonary disease, unspecified; J96.11 Chronic respiratory failure with hypoxia; R33.9 Retention of urine, unspecified; E03.9 Hypothyroidism, unspecified; K59.00 Constipation, unspecified; G47.00 Insomnia, unspecified; I47.10 Supraventricular tachycardia, unspecified; M06.9 Rheumatoid arthritis, unspecified; Z66 Do not resuscitate; Z99.81 Dependence on supplemental oxygen; Z98.890 Other specified postprocedural states; Z79.890 Hormone replacement therapy; Z79.899 Other long term (current) drug therapy; Z88.8 Allergy status to other drugs, medicaments and biological substances; Z88.5 Allergy status to narcotic agent
CPT/HCPCS: 36415; 51702; 71045; 80053; 81001; 82803; 83880; 84145; 84484; 85025; 87086; 87106; 87637; 93005; 93010; 94640; 94664; 94760; 96374; 96375; 96376; 99285-25; A9270; G0378; J0696; J1938; J1956